=== PATIENT | male | born 1985 | race African-American/Black ===

== ENCOUNTER 2016-06-24 01:18 | Emergency (ER) | payer SELFPAY ==
--- NOTE | 2016-06-24 03:33 | ER Document Report ---
ED General - General Chief Complaint: ETOH Abuse Stated Complaint: POSSIBLE HIGH ALCOHOL LEVEL Notes: Patient is a 30-year-old male presents with complaint of a rash. He also some alcohol today. Patient's is the rash has been there for 3-4 days. Over his torso and extremities. He says it does itch some. No fevers. No vomiting. No diarrhea. Has been under some stress. No history of eczema. No other complaints at this time. - Related Data Allergies/Adverse Reactions: No Known Allergies Allergy (Verified 06/24/16 01:41) Past Medical History - Social History Smoking Status: Unknown if Ever Smoked Frequency of alcohol use: Occasional Drug Abuse: None Family History: Reviewed & Not Pertinent Surgical Hx: Negative - Immunizations Hx Diphtheria, Pertussis, Tetanus Vaccination: Yes Review of Systems - Review of Systems Notes: My Normal Review Basic REVIEW OF SYSTEMS: CONSTITUTIONAL : Denies fever, chills, or sweats. Denies recent illness. EENT: Denies eye, ear, throat, or mouth pain or symptoms. Denies nasal or sinus congestion. RESPIRATORY: Denies cough, cold, or chest congestion. Denies shortness of breath, difficulty breathing, or wheezing. GASTROINTESTINAL: Denies abdominal pain. Denies nausea, vomiting, or diarrhea. Denies constipation. Last BM: MUSCULOSKELETAL: Denies neck or back pain or joint pain or swelling. SKIN: Macular rash over extremities and torso NEUROLOGICAL: Denies altered mental status or loss of consciousness. Denies headache. Denies weakness or paralysis or loss of use of either side. Denies problems with gait or speech. Denies sensory or motor loss. ALL OTHER SYSTEMS REVIEWED AND NEGATIVE. Physical Exam - Vital signs Vitals: Temp Pulse Resp BP Pulse Ox 97.4 F 80 18 127/88 H 98 06/24/16 01:32 06/24/16 01:32 06/24/16 01:32 06/24/16 01:32 06/24/16 01:32 - Notes Notes: General Appearance: Well nourished, alert, cooperative, no acute distress, no obvious discomfort. Well-appearing. Vitals: reviewed, See vital signs table. Head: no swelling or tenderness to the head Eyes: PERRL, EOMI, Conjuctiva clear Mouth: No decreasd moisture Lungs: No wheezing, No rales, No rhonci, No accessory muscle use, good air exchange bilaterally. Heart: Normal rate, Regular rythm, No murmur, no rub Abdomen: Normal BS, soft, No rigidity, No abdominal tenderness, No guarding, no rebound, no abdominal masses, no organomegaly Extremities: strength 5/5 in all extremities, good pulses in all extremities, no swelling or tenderness in the extremities, no edema. Skin: Macular rash over the torso and extremities. Appearance and pattern appears consistent with pityriasis. No rash on the palms or soles. No oral lesions. Neuro: speech clear, oriented x 3, normal affect, responds appropriately to questions. Course - Vital Signs Vital signs: Temp Pulse Resp BP Pulse Ox 97.4 F 80 18 127/88 H 98 06/24/16 01:32 06/24/16 01:32 06/24/16 01:32 06/24/16 01:32 06/24/16 01:32 - Transfer of Care Notes: 06/24/16 07:03 Patient is well-appearing. He is awake alert. He is talking without sinus worse. Skin normal coordination. He is clinically sober I feel safe to be discharged home. His rash is very consistent with that of pityriasis. He has what appears to be her old patch on his back. His diffuse macular rash that is pruritic. He is well-appearing without fevers. He is not septic or toxic appearing. I informed him that he must return to ER immediately if has fevers, worsening was rash, pain with the rash, or feels unwell. Patient agrees with plan and will be discharged home. Dictation of this chart was performed using voice recognition software; therefore, there may be some unintended grammatical errors. Discharge - Discharge Clinical Impression: Rash Alcohol intoxication Qualifiers: Complication of substance-induced condition: uncomplicated Qualified Code(s): F10.120 - Alcohol abuse with intoxication, uncomplicated Condition: Good Disposition: HOME, SELF-CARE Additional Instructions: Please return to the ER immediately if he has fevers, worsening rash, any pain with her rash, vomiting, or feel unwell. Please do not drink large amounts of alcohol. Forms: Return to Work
[2016-06-24 07:45] VITALS: BP 106/70
== END 2016-06-24 07:45 | disposition home or self-care (01) ==
LOC: ER 01:18
DX: R21 Rash and other nonspecific skin eruption (principal); F10.120 Alcohol abuse with intoxication, uncomplicated
CPT/HCPCS: 99284

== ENCOUNTER 2016-10-23 03:30 | Emergency (ER) | payer SELFPAY ==
[2016-10-23] MEDS ORDERED: LIDOCAINE 1%/EPINEPHRINE INJ 20 ML VIAL INJ ONE (03:39)
[2016-10-23 04:04] VITALS: BP 128/91
--- NOTE | 2016-10-23 04:38 | RADIOLOGY REPORT (SQ) ---
EXAM DESCRIPTION: CT HEAD WITHOUT COMPLETED DATE/TIME: 10/23/2016 4:14 am REASON FOR STUDY: head injury, ETOH COMPARISON: Facial CT 12/29/2011 TECHNIQUE: Axial images acquired through the brain without intravenous contrast. Images reviewed wi th bone, brain and subdural windows. Images stored on PACS. All CT scanners at this facility use dose modulation, iterative reconstruction, and/or weight based d osing when appropriate to reduce radiation dose to as low as reasonably achievable (ALARA). [facility]: Dose Right [facility]: CareDose [facility]: Dose Right [facility]: Teradose 4D [facility]: [employer] RADIATION DOSE: 64.61 mGy. LIMITATIONS: None. FINDINGS: VENTRICLES: Normal size and contour. CEREBRUM: No masses. No hemorrhage. No midline shift. Normal ac/white matter differentiation. N o evidence for acute infarction. CEREBELLUM: No masses. No hemorrhage. No alteration of density. No evidence for acute infarction. EXTRAAXIAL SPACES: No fluid collections. No masses. ORBITS AND GLOBE: No intra- or extraconal masses. Normal contour of globe without masses. CALVARIUM: No fracture. PARANASAL SINUSES: No fluid or mucosal thickening. SOFT TISSUES: No mass or hematoma. OTHER: No other significant finding. IMPRESSION: No evidence of calvarial injury or intracranial hemorrhage. TECHNICAL DOCUMENTATION: JOB ID: [id number] Quality ID # [id number]: Final reports with documentation of one or more dose reduction techniques (e.g., Au tomated exposure control, adjustment of the mA and/or kV according to patient size, use of iterative reconstruction technique) 2010 [employer]- All Rights Reserved
--- NOTE | 2016-10-23 04:43 | RADIOLOGY REPORT (SQ) ---
EXAM DESCRIPTION: CT CERVICAL SPINE WITHOUT COMPLETED DATE/TIME: 10/23/2016 4:19 am REASON FOR STUDY: head injury, ETOH COMPARISON: None. TECHNIQUE: Axial images acquired through the cervical spine without intravenous contrast. Images re viewed with lung, soft tissue and bone windows. Reconstructed coronal and sagittal MPR images review ed. Images stored on PACS. All CT scanners at this facility use dose modulation, iterative reconstruction, and/or weight based d osing when appropriate to reduce radiation dose to as low as reasonably achievable (ALARA). [facility]: Dose Right [facility]: CareDose [facility]: Dose Right [facility]: Teradose 4D [facility]: [employer] RADIATION DOSE: 13.26 mGy. LIMITATIONS: None. FINDINGS: ALIGNMENT: Reversal of the normal lordotic curvature may be positional. MINERALIZATION: Normal. VERTEBRAL BODIES: No acute fracture or dislocation. DISCS: No significant disc disease. FACETS, LATERAL MASSES, POSTERIOR ELEMENTS: Today's examination demonstrates a chronic fracture of th e right projection of the C4 spinous process. No acute fractures. No dislocation. HARDWARE: None in the spine. VISUALIZED RIBS: No fractures. LUNG APICES AND SOFT TISSUES: No significant or acute findings. OTHER: No other significant finding. IMPRESSION: Chronic fracture of the right projection of the C4 spinous process. No evidence of acut e osseous injury. TECHNICAL DOCUMENTATION: JOB ID: [id number] Quality ID # [id number]: Final reports with documentation of one or more dose reduction techniques (e.g., Au tomated exposure control, adjustment of the mA and/or kV according to patient size, use of iterative reconstruction technique) 2010 [employer]- All Rights Reserved
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
== END 2016-10-23 05:10 | disposition home or self-care (01) ==
LOC: ER 03:30
PROC: 0HQ0XZZ Repair Scalp Skin, External Approach (ICD-10-PCS; principal; 2016-10-23)
DX: S01.01XA Laceration without foreign body of scalp, initial encounter (principal); S10.91XA Abrasion of unspecified part of neck, initial encounter; Y00.XXXA Assault by blunt object, initial encounter
CPT/HCPCS: 99284; 70450; 72125; 12002; J3490

== ENCOUNTER 2016-10-30 12:41 | Emergency (ER) | payer SELFPAY ==
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
[2016-10-30 15:47] VITALS: BP 132/79
== END 2016-10-30 15:45 | disposition home or self-care (01) ==
LOC: ER 12:41
DX: Z48.02 Encounter for removal of sutures (principal)

== ENCOUNTER 2019-04-29 18:46 | Inpatient (IN) | payer OTHER ==
[~2019-04-29 18:46] MED LIST: DEXAMETHASONE SOD PHOSPHATE INJ 4 MG/1 ML VIAL ONE; GLYCOPYRROLATE 1 MG/5 ML VIAL ONE; KETOROLAC TROMETHAMINE 60 MG/2 ML SDV ONE; LIDOCAINE 2% INJ-PF (20 MG/ML) 2 ML AMPUL ONE; NEOSTIGMINE METHYLSULFATE 10 MG/10 ML VIAL ONE; ONDANSETRON HCL INJ/PF 4 MG/2 ML SDV ONE; ROCURONIUM BROMIDE INJ 50 MG/5 ML VIAL IV ONE
[2019-04-29 19:24] LABS: ABSOLUTE LYMPHOCYTES (AUTO) 1.2 10^3/uL (0.5-4.7); ABSOLUTE MONOCYTES (AUTO) 0.4 10^3/uL (0.1-1.4); ABSOLUTE NEUT (AUTO) 2.7 10^3/uL (1.7-8.2); BASOPHILS % (AUTO) 0.4 % (0-2); EOSINOPHILS % (AUTO) 0.3 % (0-6); HEMATOCRIT 42.4 % (37.9-51.0); HEMOGLOBIN 14.3 g/dL (13.5-17.0); LYMPHOCYTES % (AUTO) 26.8 % (13-45); MEAN CORPUSCULAR HEMOGLOBIN 32.9 pg (27.0-33.4); MEAN CORPUSCULAR HGB CONC 33.8 g/dL (32.0-36.0); MEAN CORPUSCULAR VOLUME 97 fl (80-97); MONOCYTES % (AUTO) 9.8 % (3-13); PLATELET COUNT 222 10^3/uL (150-450); RED BLOOD COUNT 4.35 10^6/uL (4.35-5.55); RED CELL DISTRIBUTION WIDTH 13.5 % (11.5-14.0); SEGMENTED NEUTROPHILS % (AUTO) 62.7 % (42-78); TOTAL CELLS COUNTED % (AUTO) 100 %; WHITE BLOOD COUNT 4.3 10^3/uL (4.0-10.5)
[2019-04-29 19:25] LABS: ALBUMIN 2.3 g/dL (3.5-5.0); ALKALINE PHOSPHATASE 64 U/L (38-126); ANION GAP 7 (5-19); ASPARTATE AMINO TRANSFERASE 32 U/L (17-59); BILIRUBIN,DIRECT 0.2 mg/dL (0.0-0.4); BILIRUBIN,TOTAL 0.3 mg/dL (0.2-1.3); BLOOD UREA NITROGEN 6 mg/dL (7-20); CARBON DIOXIDE 18 mmol/L (22-30); CHLORIDE 114 mmol/L (98-107); TOTAL PROTEIN 4.5 g/dL (6.3-8.2)
[2019-04-29 19:33] LABS: GLUCOSE 69 mg/dL (75-110)
[2019-04-29 19:36] LABS: POTASSIUM 2.3 mmol/L (3.6-5.0)
[2019-04-29] MEDS ORDERED: CALCIUM GLUCONATE 1000 MG/10 ML INJ IV ONE (19:41)
[2019-04-29] MEDS ORDERED: KETOROLAC TROMETHAMINE INJ/PF 30 MG/1 ML SDV IV ONE (19:46)
[2019-04-29] MEDS ORDERED: NORMAL SALINE 1000 ML 1,000 ML IV ONE ×3 (19:46→22:00)
[2019-04-29] MEDS ORDERED: ONDANSETRON HCL INJ/PF 4 MG/2 ML SDV IV ONE (19:46)
[2019-04-29] MEDS ORDERED: MORPHINE SULFATE 10 MG/ML INJ IV ONE (19:46)
[2019-04-29 20:05] LABS: APPEARANCE,URINE CLEAR; BILIRUBIN,URINE NEGATIVE (NEGATIVE); COLOR,URINE YELLOW; GLUCOSE, URINE NEGATIVE (NEGATIVE); KETONES,URINE TRACE mg/dL (NEGATIVE); PROTEIN,URINE NEGATIVE (NEGATIVE); URINE SPECIFIC GRAVITY 1.021; UROBILINOGEN,URINE NEGATIVE mg/dL (<2.0)
--- NOTE | 2019-04-29 20:10 | ER Document Report ---
ED General - General Chief Complaint: Abdominal Pain Stated Complaint: ABDOMINAL,LOWER BACK PAIN Time Seen by Provider: 04/29/19 19:08 Mode of Arrival: Medic Information source: Patient Notes: Patient is an otherwise healthy 33-year-old male presenting to the emergency department chief complaint of right-sided abdominal pain that radiates to his back, groin pain, nausea and vomiting. He states all symptoms started yesterday. He states he has vomited only 6 times. He denies any past medical history, denies use of any daily medications. He has no drug allergies. He is writhing around in pain. Denies history of kidney stones. TRAVEL OUTSIDE OF THE [place] IN LAST 30 DAYS: No - Related Data Allergies/Adverse Reactions: No Known Allergies Allergy (Verified 10/30/16 12:55) Past Medical History - General Information source: Patient - Social History Smoking Status: Current Some Day Smoker Frequency of alcohol use: Occasional Drug Abuse: Marijuana Family History: Reviewed & Not Pertinent Patient has suicidal ideation: No Patient has homicidal ideation: No - Medical History Medical History: Negative Renal/ Medical History: Denies: Hx Peritoneal Dialysis Surgical Hx: Negative - Immunizations Immunizations up to date: Yes Hx Diphtheria, Pertussis, Tetanus Vaccination: Yes Review of Systems - Review of Systems Constitutional: No symptoms reported EENT: No symptoms reported Cardiovascular: No symptoms reported Respiratory: No symptoms reported Gastrointestinal: See HPI Genitourinary: No symptoms reported Male Genitourinary: No symptoms reported Musculoskeletal: No symptoms reported Skin: No symptoms reported Hematologic/Lymphatic: No symptoms reported Neurological/Psychological: No symptoms reported Physical Exam - Vital signs Vitals: Temp Pulse Resp BP Pulse Ox 98.1 F 65 16 127/86 H 99 04/29/19 18:54 04/29/19 18:54 04/29/19 18:54 04/29/19 18:54 04/29/19 18:54 - Notes Notes: PHYSICAL EXAMINATION: GENERAL: Well-nourished and in moderate distress. HEAD: Atraumatic, normocephalic. EYES: Pupils equal round and reactive to light, extraocular movements intact, sclera anicteric, conjunctiva are normal. ENT: Nares patent, oropharynx clear without exudates. Moist mucous membranes. NECK: Normal range of motion, supple without lymphadenopathy LUNGS: Breath sounds clear to auscultation bilaterally and equal. No wheezes rales or rhonchi. HEART: Regular rate and rhythm without murmurs ABDOMEN: Generalized abdominal tenderness, guarding present. No masses noted. Musculoskeletal: Normal range of motion, no pitting or edema. No cyanosis. NEUROLOGICAL: Cranial nerves grossly intact. Normal speech. Normal sensory, motor exams PSYCH: Normal mood, normal affect. SKIN: Warm, Dry, normal turgor, no rashes or lesions noted. Course - Re-evaluation Re-evalutation: 04/29/19 20:09 Corrected calcium is 7.36. Will start with 1000 mg of calcium gluconate and 40 M EQ's of IV potassium to correct his electrolytes. He has been given pain medications and nausea medications. CT of the abdomen pelvis without IV oral contrast pending, suspect renal calculi. 04/29/19 21:25 Radiologist is called, CT of abdomen pelvis shows free air and fluids, she is unable to determine exactly where there may be a perforation. Appendix appears normal. Reminded of n.p.o. status. 04/29/19 21:32 Called and spoke with on-call surgeon, Dr. Bhatt, he will evaluate the patient. 04/29/19 21:40 Dr. Bhatt at bedside. - Vital Signs Vital signs: Temp Pulse Resp BP Pulse Ox 98.2 F 79 19 136/91 H 100 04/29/19 21:56 04/29/19 21:56 04/29/19 22:01 04/29/19 22:01 04/29/19 21:56 - Laboratory Result Diagrams: 04/29/19 18:51 04/29/19 18:51 Laboratory results interpreted by me: 04/29/19 04/29/19 04/29/19 18:51 19:46 20:08 Potassium 2.3 L* Chloride 114 H Carbon Dioxide 18 L BUN 6 L Glucose 69 L Calcium 6.0 L* Total Protein 4.5 L Albumin 2.3 L Urine Ketones TRACE H Chlamydia DNA (PCR) DETECTED H Discharge - Discharge Clinical Impression: Perforated abdominal viscus, Hypokalemia, Hypocalcemia Condition: Stable Disposition: ADMITTED INPATIENT Admitting Provider: Surgicalist - Dr. Bhatt Unit Admitted: Surgical Floor
[2019-04-29] MEDS: POTASSI CL 20 MEQ/50 ML RIDER 20 MEQ/50 ML RTUPB IV SCH ×2 (20:39→22:33)
[2019-04-29] MEDS ORDERED: FENTANYL CITRATE INJ/PF 100 MCG/2 ML AMPUL IV ONE ×2 (20:58→22:43)
--- NOTE | 2019-04-29 21:26 | RADIOLOGY REPORT (SQ) ---
EXAM DESCRIPTION: CT ABDOMEN PELVIS WITHOUT IV CONTRAST COMPLETED DATE/TME: 04/29/2019 19:46 CLINICAL HISTORY: 33 years Male eval for renal stone COMPARISON: None. TECHNIQUE: Contiguous axial images obtained through the abdomen and pelvis without IV contrast. Reformatted images obtained. This exam was performed according to our department optimization program which includes automated exposure control, adjustment of the mA and/or kv according to patient size and/or use of iterative reconstruction technique. FINDINGS: There is free intraperitoneal air consistent with perforation. There is free fluid in the abdomen and pelvis. Minimal atelectasis in the right lung base. The liver appears unremarkable. The spleen and pancreas appear unremarkable. No adrenal masses. The kidneys appear unremarkable. No hydronephrosis or definite ureteral calculi. The gallbladder is visualized. No aneurysmal dilatation of the aorta. No bowel obstruction. Small amount of wall thickening is present in loops of large and small bowel which is nonspecific. This may be related to inflammatory process in the peritoneum as a result of perforation or represent enterocolitis. The site of perforation is not clearly identified. appendix appears unremarkable. IMPRESSION: Free intraperitoneal air consistent with perforation. The site of perforation is not identified. Apple Beltrán was called and notified of the findings at 8:24 PM central time. There is free fluid in the abdomen and pelvis Wall thickening in loops of large and small bowel which may be as result of inflammation in the peritoneum as a result of the perforation versus enterocolitis from other infectious or inflammatory process
[2019-04-29 21:50] LABS: CHLAM PCR DETECTED (NOT DETECT)
[2019-04-29] MEDS ORDERED: METRONIDAZOLE RTU 500 MG/NS 100 ML IV ONE (21:51)
[2019-04-29] MEDS ORDERED: DEXTROSE 50%-WATER 25 GM/50 ML DISP.SYRIN IV ONE (21:55)
[2019-04-29] MEDS ORDERED: LEVOFLOXACIN 750 MG/D5W RTU 750 MG/150 ML RTUPB IV ONE (22:15)
--- NOTE | 2019-04-29 22:57 | RADIOLOGY REPORT (SQ) ---
EXAM DESCRIPTION: CT ABDOMEN PELVIS WITH IV CONTRAST COMPLETED DATE/TME: 04/29/2019 22:00 CLINICAL HISTORY: 33 years Male eval for location of perforation, free air COMPARISON: Earlier noncontrast exam 04/29/2019. TECHNIQUE: Contiguous axial images obtained through the abdomen and pelvis following IV contrast. Reformatted images obtained. This exam was performed according to our department optimization program which includes automated exposure control, adjustment of the mA and/or kv according to patient size and/or use of iterative reconstruction technique. FINDINGS: Atelectasis in the lung bases. As before there is free intraperitoneal air as well as a moderate amount of free fluid which is present in the abdomen pelvis and along the paracolic gutters. The amount of fluid and the amount of gas has increased when compared to the previous study. There is mild dilatation of the proximal pancreatic duct and the bile duct. No obvious duodenal wall thickening is noted however there is a single area where there could be an focal area of perforation and ulceration along the duodenal bulb seen on axial image / and coronal images 17 through 19. Gallbladder, adrenal glands, kidneys and spleen remain unchanged. No focal liver lesion is noted. Wall thickening is present in loops of large and small bowel. There is no definite gas or evidence of diverticulitis along the cecum or along the sigmoid colon. The appendix is seen in appears unremarkable. Small amount of free gas is also present in the lower pelvis. Aorta is normal in caliber. IMPRESSION: Increasing free intraperitoneal gas and fluid consistent with perforation The exact site of perforation is not clearly identified but a small defect in the wall of the duodenal bulb superiorly and laterally may be present which could reflect area of duodenal ulceration. Perforation in the central small bowel or transverse colon cannot be entirely excluded. A definite area of wall thickening or diverticulitis involving the sigmoid colon or cecum are not identified at the appendix appears normal Findings were discussed with Dr Bhatt at 9:50 PM central time.
--- NOTE | 2019-04-29 23:00 | PDOC H&P ---
History of Present Illness Patient complains of: Abdominal pain History of Present Illness: CLOVIS LOJA JR is a 33 year old male presenting with gradual onset of mid abdominal pain about 3 days ago that waxed and waned in quality along with the emergence of nausea and vomiting. The pain became much more severe in the last day with worsened pain with ambulation and any type of jostling motion. Patient denies any blood per rectum. He does have some dark loose bowel movements today. He denies any fever. He denies any prior history of this sort of pain. Patient is an alcoholic but denies any NSAID abuse. Although he takes some recreational drugs he denies any history of IV drug abuse nor prescription pain medication abuse. He denies any recent trauma. He states that he could have eaten some fish bone in the last several days but is unsure. He states that the pain may be worse on the right side although it is diffuse at this time. Past Medical History Medical History: None Past Surgical History Past Surgical History: Reports: None Social History Smoking Status: Current Some Day Smoker Frequency of Alcohol Use: Heavy Drugs: Cocaine, Marijuana Hx Prescription Drug Abuse: No Family History Family History: Reviewed & Not Pertinent Parental Family History Reviewed: Yes Children Family History Reviewed: Yes Sibling(s) Family History Reviewed.: Yes Medication/Allergy Home Medications: Butalb/Acetaminophen/Caffeine [Fioricet (50-325-40 mg) Tablet] 1 - 2 tab PO Q6 #20 each 04/10/13 Allergies/Adverse Reactions: No Known Allergies Allergy (Verified 10/30/16 12:55) Review of Systems All systems: reviewed and no additional remarkable complaints except as stated Respiratory: PRESENT: cough Gastrointestinal: PRESENT: as per HPI Physical Exam Vital Signs: Temp Pulse Resp BP Pulse Ox 98.2 F 79 16 125/74 100 04/29/19 21:56 04/29/19 21:56 04/29/19 18:54 04/29/19 21:56 04/29/19 21:56 Intake & Output 04/28/19 04/29/19 04/30/19 06:59 06:59 06:59 Intake Total 1000 Balance 1000 Weight 65.771 kg General appearance: PRESENT: cooperative, mild distress Eye exam: PRESENT: conjunctiva pink Neck exam: PRESENT: other - Supple with no masses and no tenderness. Respiratory exam: PRESENT: clear to auscultation molly Cardiovascular exam: PRESENT: RRR GI/Abdominal exam: PRESENT: other - Rigid with diffuse abdominal tenderness with diffuse guarding and rebound. No hernias identified. Extremities exam: PRESENT: other - Warm Neurological exam: PRESENT: alert, awake Psychiatric exam: PRESENT: appropriate affect Skin exam: PRESENT: warm Results Laboratory Results: 04/29/19 18:51 04/29/19 18:51 04/29/19 04/29/19 04/29/19 18:51 18:51 18:51 WBC 4.3 RBC 4.35 Hgb 14.3 Hct 42.4 MCV 97 MCH 32.9 MCHC 33.8 RDW 13.5 Plt Count 222 Seg Neutrophils % 62.7 Sodium 138.5 Potassium 2.3 L* Chloride 114 H Carbon Dioxide 18 L Anion Gap 7 BUN 6 L Creatinine 0.57 Est GFR ( Amer) > 60 Glucose 69 L Calcium 6.0 L* Magnesium 1.8 Total Bilirubin 0.3 AST 32 Alkaline Phosphatase 64 Total Protein 4.5 L Albumin 2.3 L Lipase 112.0 Urine Color Urine Appearance Urine pH Ur Specific [place] Urine Protein Urine Glucose (UA) Urine Ketones Urine Blood Urine RBC (Auto) 04/29/19 19:46 WBC RBC Hgb Hct MCV MCH MCHC RDW Plt Count Seg Neutrophils % Sodium Potassium Chloride Carbon Dioxide Anion Gap BUN Creatinine Est GFR ( Amer) Glucose Calcium Magnesium Total Bilirubin AST Alkaline Phosphatase Total Protein Albumin Lipase Urine Color YELLOW Urine Appearance CLEAR Urine pH 5.0 Ur Specific [place] 1.021 Urine Protein NEGATIVE Urine Glucose (UA) NEGATIVE Urine Ketones TRACE H Urine Blood NEGATIVE Urine RBC (Auto) 1 Impressions: Abdomen/Pelvis CT 04/29/19 19:46 IMPRESSION: Free intraperitoneal air consistent with perforation. The site of perforation is not identified. Apple Beltrán was called and notified of the findings at 8:24 PM central time. There is free fluid in the abdomen and pelvis Wall thickening in loops of large and small bowel which may be as result of inflammation in the peritoneum as a result of the perforation versus enterocolitis from other infectious or inflammatory process Assessment & Plan - Diagnosis (1) Perforated abdominal viscus Is this a current diagnosis for this admission?: Yes Plan: We will plan exploratory laparotomy with possible bowel resection. May be a duodenal ulcer perforation although the clear source of the perforation is not identified on CT. The appendix does appear normal and the sigmoid colon does not appear to be the culprit on CT. I have had a discussion with the patient concerning the risk and benefits of the surgery including risk that the perforation is not identified, risk of bleeding, infection, adjacent structure injury, poor wound healing, cardiopulmonary risks, recurrence. Patient underst ands that there is a possibility of having to do a colostomy if a colon perforation is noted. Will resuscitate the patient with IV fluids, potassium supplementation, IV antibiotics and NG decompression while awaiting the OR team to come in. Patient understands and agrees to proceed.
[2019-04-29] MEDS ORDERED: FENTANYL CITRATE INJ/PF 100 MCG/2 ML AMPUL ONE (23:19)
[2019-04-29] MEDS ORDERED: MIDAZOLAM 2 MG/2 ML INJ ONE (23:19)
[2019-04-29] MEDS ORDERED: PROPOFOL INJ 200 MG/20 ML VIAL IV ONE (23:20)
[2019-04-29] MEDS ORDERED: HYDROMORPHONE HCL INJ/PF 2 MG/ML AMPULE ONE (23:20)
[2019-04-29] MEDS ORDERED: BUPIVACAINE HCL 0.25 % INJ/PF (2.5 MG/1 ML) 30 ML VIAL ONE (23:46)
[2019-04-30] MEDS ORDERED: PANTOPRAZOLE SODIUM 40 MG TABLET.DR PO ONE (00:23)
[2019-04-30] MEDS ORDERED: FAMOTIDINE INJ/PF 20 MG/2 ML SDV IV ONE (00:24)
[2019-04-30] MEDS ORDERED: PANTOPRAZOLE SODIUM 40 MG VIAL IV ONE (00:30)
[2019-04-30] MEDS ORDERED: MEPERIDINE HCL/PF INJ 25 MG/1 ML DISP.SYRIN IV PRN (00:41)
[2019-04-30] MEDS ORDERED: OXYCODONE-ACETAMINOPHEN 5-325 MG TABLET PO PRN ×2 (00:41)
[2019-04-30] MEDS ORDERED: ONDANSETRON HCL INJ/PF 4 MG/2 ML SDV IV PRN ×2 (00:41→01:06)
[2019-04-30] MEDS ORDERED: FENTANYL CITRATE INJ/PF 100 MCG/2 ML AMPUL IV PRN ×3 (00:41)
[2019-04-30] MEDS ORDERED: PROMETHAZINE HCL INJ 25 MG/1 ML VIAL IV PRN ×2 (00:41)
[2019-04-30] MEDS ORDERED: DIPHENHYDRAMINE HCL 50 MG/ML VIAL IV PRN (00:41)
[2019-04-30] MEDS ORDERED: DEXTROSE 40% GEL 15 GM TUBE PO PRN ×2 (01:06)
[2019-04-30] MEDS ORDERED: DEXTROSE 50%-WATER 25 GM/50 ML DISP.SYRIN IV PRN ×2 (01:06)
[2019-04-30] MEDS ORDERED: GLUCAGON,HUMAN RECOMB 1 MG INJ SUBCUT PRN (01:06)
--- NOTE | 2019-04-30 01:06 | Operative Report ---
Operative Report DATE OF SURGERY: 04/30/19 PREOPERATIVE DIAGNOSIS: Perforated bowel with peritonitis POSTOPERATIVE DIAGNOSIS: Perforated duodenal ulcer OPERATION: Exploratory laparotomy with abdominal cavity washout and Get patch closure of perforated duodenal ulcer SURGEON: MEMO CR ANESTHESIA: GA TISSUE REMOVED OR ALTERED: None COMPLICATIONS: None ESTIMATED BLOOD LOSS: 20 cc INTRAOPERATIVE FINDINGS: Turbid fluid throughout the peritoneal cavity. Perforation at the region of the pylorus, likely anterior duodenal ulcer perforation. Fatty liver. PROCEDURE: Informed consent was obtained. Patient was brought to the operating room and placed on the operating table in the supine position. After satisfactory induction of general anesthesia patient's abdomen was prepped and draped in usual sterile fashion. A midline supraumbilical incision was made and dissection carried out through the fascia and the peritoneal cavity was entered without difficulty. The falciform ligament was taken by clamping dividing and tying. I encountered copious amount of turbid bile-stained fluid. I could see a perforation at the region of the pylorus, likely anterior duodenal ulcer perforation. With this visualization of the source of peritonitis, I extended the incision cephalad. Wound protractor was used during the case. There was copious amount of fluid in the peritoneal cavity that was aspirated out. Liver appeared fatty but not cirrhotic. The anterior surface of the stomach felt normal and I did not appreciate any palpable gastric masses. NG tube position was verified. The transverse colon felt normal. The sigmoid colon felt normal as did the cecum. Portion of the jejunum and ileum were visualized and it appeared grossly normal. The gallbladder appeared distended but it was aurora's egg blue. The omentum felt normal with no nodules. I could feel the pylorus at the region of the perforation and it was difficult to tell whether it was a prepyloric ulcer perforation versus a duodenal perforation. It appeared to be on the duodenal side of the pylorus. The perforation itself was about half a centimeter in size. The surrounding tissue was somewhat rigid and inflamed and the pyloric vein of Erwin was not clearly visible. Get patch closure was performed, buttressing the omentum over the perforation using interrupted Vicryl sutures. The repaired appeared secure. The peritoneal cavity was irrigated copiously and irrigant aspirated out. Irrigation fluid was perfectly clear at the end of the case. Hemostasis appeared excellent. 2 Bijan-Davison drains were placed around the region of the Get patch closure. And brought out through separate stab incisions in the upper abdomen and sutured in place. Sponge needle instrument counts were all correct. Fascia was closed with running PDS suture. Skin was closed with claudia. Marcaine was injected at the incision sites. Patient tolerated procedure well with no apparent complications and was taken to the recovery area in stable condition.
[2019-04-30] MEDS ORDERED: CEFAZOLIN 1 GM/D5W RTU 1 GM/50 ML RTUPB IV SCH (06:00)
[2019-04-30] MEDS: CEFAZOLIN SODIUM 1 GM in DEXTROSE 5%-WATER 50 ML IV SCH ×3 (09:31→20:26)
[2019-04-30] MEDS: NORMAL SALINE 1000 ML 1,000 ML IV PRN ×2 (09:31→14:33)
[2019-04-30] MEDS: PANTOPRAZOLE SODIUM 40 MG VIAL IV SCH ×2 (09:32→22:18)
[2019-04-30] MEDS: MORPHINE SULFATE 10 MG/ML INJ IV PRN ×3 (09:32→20:16)
[2019-04-30] MEDS: ENOXAPARIN SODIUM INJ 40 MG/0.4 ML DISP.SYRIN SUBCUT SCH (09:32)
[2019-04-30] MEDS ORDERED: THIAMINE HCL 100 MG, FOLIC ACID 1 MG in NORMAL SALINE 250 ML IV SCH (10:00)
--- NOTE | 2019-04-30 10:10 | PDOC PROGRESS REPORT ---
Subjective Progress Note for:: 04/30/19 Subjective:: Patient on the floor, no immediate postoperative issues; Reason For Visit: PERFORATED DUODENAL ULCER Physical Exam Vital Signs: Temp Pulse Resp BP Pulse Ox 98.2 F 88 18 123/86 H 100 04/30/19 07:31 04/30/19 07:31 04/30/19 07:31 04/30/19 07:31 04/30/19 07:31 Intake & Output 04/29/19 04/30/19 05/01/19 06:59 06:59 06:59 Intake Total 3500 4408 Output Total 3670 1150 Balance -170 3258 Weight 71.5 kg General appearance: PRESENT: no acute distress, other - Patient is awake alert and oriented x4. No overt signs of alcohol withdrawal. GI/Abdominal exam: PRESENT: other - Appropriately tender; drains coming out right upper and left upper quadrants, with minimal serosanguineous drainage. Results Laboratory Results: 04/29/19 18:51 04/29/19 22:55 04/29/19 04/29/19 04/29/19 18:51 18:51 18:51 WBC 4.3 RBC 4.35 Hgb 14.3 Hct 42.4 MCV 97 MCH 32.9 MCHC 33.8 RDW 13.5 Plt Count 222 Seg Neutrophils % 62.7 Sodium 138.5 Potassium 2.3 L* Chloride 114 H Carbon Dioxide 18 L Anion Gap 7 BUN 6 L Creatinine 0.57 Est GFR ( Amer) > 60 Glucose 69 L Calcium 6.0 L* Magnesium 1.8 Total Bilirubin 0.3 AST 32 Alkaline Phosphatase 64 Total Protein 4.5 L Albumin 2.3 L Lipase 112.0 Urine Color Urine Appearance Urine pH Ur Specific [place] Urine Protein Urine Glucose (UA) Urine Ketones Urine Blood Urine RBC (Auto) 04/29/19 04/29/19 19:46 22:55 WBC RBC Hgb Hct MCV MCH MCHC RDW Plt Count Seg Neutrophils % Sodium Potassium 3.8 D Chloride Carbon Dioxide Anion Gap BUN Creatinine Est GFR ( Amer) Glucose Calcium Magnesium Total Bilirubin AST Alkaline Phosphatase Total Protein Albumin Lipase Urine Color YELLOW Urine Appearance CLEAR Urine pH 5.0 Ur Specific [place] 1.021 Urine Protein NEGATIVE Urine Glucose (UA) NEGATIVE Urine Ketones TRACE H Urine Blood NEGATIVE Urine RBC (Auto) 1 Impressions: Abdomen/Pelvis CT 04/29/19 22:00 IMPRESSION: Increasing free intraperitoneal gas and fluid consistent with perforation The exact site of perforation is not clearly identified but a small defect in the wall of the duodenal bulb superiorly and laterally may be present which could reflect area of duodenal ulceration. Perforation in the central small bowel or transverse colon cannot be entirely excluded. A definite area of wall thickening or diverticulitis involving the sigmoid colon or cecum are not identified at the appendix appears normal Findings were discussed with Dr Bhatt at 9:50 PM central time. Assessment & Plan - Diagnosis (1) Perforated abdominal viscus Is this a current diagnosis for this admission?: Yes Plan: Impression: Patient 10 hours status post exploratory laparotomy, oversewing of a duodenal perforation, with Get patch, doing reasonably well in the early postoperative. Recommendations: 1. I have consulted the hospitalist service for assistance with management of alcohol withdrawal 2. Will discontinue Lozada catheter after patient gets up and out of bed. 3. Potassium now up to a 3.8. 4. Leave nasogastric tube and drains in position. The above explained to the patient. He expressed his understanding and agrees to proceed with treatment plan. (2) ETOH abuse Is this a current diagnosis for this admission?: Yes (3) Hypocalcemia Is this a current diagnosis for this admission?: Yes (4) Hypokalemia Is this a current diagnosis for this admission?: Yes - Time Time Spent with patient: 15-24 minutes
[2019-04-30] MEDS: FLUCONAZOLE 200 MG/NS RTU 200 MG/100 ML RTUPB IV SCH (11:09)
[2019-04-30] MEDS ORDERED: PHENOL/SODIUM PHENOLATE 100 SPRAY/177 ML BOTTLE PO PRN (11:34)
--- NOTE | 2019-04-30 11:38 | PDOC CONSULTATION ---
Consultation Consult Date: 04/30/19 Attending physician:: SARAH HUANG Provider Consulted: CELSO CHAVES Consult reason:: History of alcohol use. Concern for withdrawal. History of Present Illness Admission Date/PCP: 04/29/19 22:07 Patient complains of: Abdominal pain History of Present Illness: CLOVIS LOJA JR is a 33 year old male with no significant past medical history. 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 He does admit to drinking 3 or 440 ounce beers a day. He used to drink hard liquor but has stopped. He reports having had intermittent abdominal discomfort over the last several weeks. He tried Pepto-Bismol and Tums with no significant relief. He does not correlate eating meals with any improvement or worsening of the pain. I will last 3 days the pain is gotten significantly worse. He in fact experience nausea and vomiting as well. Evaluation revealed perforated gastric ulcer. He was taken to the operating room emergently for repair. See surgical note. We have been asked to see the patient and manage any alcohol withdrawal. Past Medical History Cardiac Medical History: Reports: None Pulmonary Medical History: Reports: None EENT Medical History: Reports: None Neurological Medical History: Reports: None Endocrine Medical History: Reports: None Renal/ Medical History: Reports: None Malignancy Medical History: Reports: None GI Medical History: Reports: None Musculoskeltal Medical History: Reports: None Skin Medical History: Reports: None Psychiatric Medical History: Reports: Alcohol Dependency Traumatic Medical History: Reports: None Hematology: Reports: None Infectious Medical History: Reports: None Past Surgical History Past Surgical History: Reports: None Social History Information Source: Patient Occupation: [employer] Lives with: Spouse/Significant other Smoking Status: Current Some Day Smoker Electronic Cigarette use?: No Frequency of Alcohol Use: Heavy Hx Recreational Drug Use: Yes Drugs: Cocaine, Marijuana Hx Prescription Drug Abuse: No - Advance Directive Resuscitation Status: Full Code Family History Family History: Reviewed & Not Pertinent, Malignancy Parental Family History Reviewed: Yes - Mother-breast cancer Father- complications alcohol Children Family History Reviewed: Yes Sibling(s) Family History Reviewed.: Yes Medication/Allergy Home Medications: No Home Medications 04/30/19 Allergies/Adverse Reactions: No Known Allergies Allergy (Verified 10/30/16 12:55) Review of Systems Constitutional: ABSENT: chills, fever(s), headache(s), night sweats Eyes: ABSENT: visual disturbances Ears: ABSENT: hearing changes Nose, Mouth, and Throat: PRESENT: sore throat. ABSENT: headache(s), mouth pain Cardiovascular: ABSENT: chest pain, edema, palpitations Respiratory: ABSENT: cough, hemoptysis, sputum Gastrointestinal: PRESENT: abdominal pain, diarrhea Genitourinary: PRESENT: other - Currently with Lozada catheter. ABSENT: difficulty urinating, dysuria Musculoskeletal: ABSENT: back pain, deformity, joint swelling, muscle weakness Integumentary: ABSENT: diaphoresis, erythema, lesions Neurological: ABSENT: confusion, focal weakness, memory loss, syncope Psychiatric: ABSENT: anxiety, depression, hallucinations Endocrine: ABSENT: cold intolerance, heat intolerance, polydipsia, polyuria Hematologic/Lymphatic: ABSENT: easy bleeding, easy bruising, lymphadenopathy Physical Exam Vital Signs: Temp Pulse Resp BP Pulse Ox 98.2 F 88 18 123/86 H 100 04/30/19 07:31 04/30/19 07:31 04/30/19 07:31 04/30/19 07:31 04/30/19 07:31 Intake & Output 04/29/19 04/30/19 05/01/19 06:59 06:59 06:59 Intake Total 3500 4408 1100 Output Total 3670 1150 Balance -170 3258 1100 Weight 71.5 kg General appearance: PRESENT: no acute distress, cooperative, well-developed. ABSENT: disheveled Head exam: PRESENT: atraumatic, normocephalic Eye exam: PRESENT: conjunctiva pink, EOMI. ABSENT: scleral icterus Ear exam: PRESENT: normal external ear exam. ABSENT: bleeding, drainage Mouth exam: PRESENT: moist, tongue midline Neck exam: ABSENT: carotid bruit, JVD, lymphadenopathy Respiratory exam: PRESENT: clear to auscultation molly, symmetrical, unlabored. ABSENT: accessory muscle use, rales, rhonchi, tachypnea, wheezes Cardiovascular exam: PRESENT: RRR, +S1, +S2. ABSENT: diastolic murmur, systolic murmur GI/Abdominal exam: PRESENT: diminished bowel sounds, soft, tenderness, other - Bilateral AJIT drains. Serosanguineous fluid collected. Midline incision with dressing in place.. ABSENT: distended Rectal exam: PRESENT: deferred Gentrourinary exam: PRESENT: indwelling catheter Extremities exam: PRESENT: full ROM. ABSENT: joint swelling, pedal edema Musculoskeletal exam: PRESENT: normal inspection. ABSENT: deformity Neurological exam: PRESENT: alert, awake, oriented to person, oriented to place, oriented to time, oriented to situation, CN II-XII grossly intact Psychiatric exam: PRESENT: appropriate affect, normal mood. ABSENT: agitated, anxious Focused psych exam: ABSENT: delusional, restlessness Skin exam: PRESENT: dry, normal color, warm. ABSENT: rash Results Laboratory Results: 04/29/19 18:51 04/29/19 22:55 04/29/19 04/29/19 04/29/19 18:51 18:51 18:51 WBC 4.3 RBC 4.35 Hgb 14.3 Hct 42.4 MCV 97 MCH 32.9 MCHC 33.8 RDW 13.5 Plt Count 222 Seg Neutrophils % 62.7 Sodium 138.5 Potassium 2.3 L* Chloride 114 H Carbon Dioxide 18 L Anion Gap 7 BUN 6 L Creatinine 0.57 Est GFR ( Amer) > 60 Glucose 69 L Calcium 6.0 L* Magnesium 1.8 Total Bilirubin 0.3 AST 32 Alkaline Phosphatase 64 Total Protein 4.5 L Albumin 2.3 L Lipase 112.0 Urine Color Urine Appearance Urine pH Ur Specific [place] Urine Protein Urine Glucose (UA) Urine Ketones Urine Blood Urine RBC (Auto) 04/29/19 04/29/19 19:46 22:55 WBC RBC Hgb Hct MCV MCH MCHC RDW Plt Count Seg Neutrophils % Sodium Potassium 3.8 D Chloride Carbon Dioxide Anion Gap BUN Creatinine Est GFR ( Amer) Glucose Calcium Magnesium Total Bilirubin AST Alkaline Phosphatase Total Protein Albumin Lipase Urine Color YELLOW Urine Appearance CLEAR Urine pH 5.0 Ur Specific [place] 1.021 Urine Protein NEGATIVE Urine Glucose (UA) NEGATIVE Urine Ketones TRACE H Urine Blood NEGATIVE Urine RBC (Auto) 1 Impressions: Abdomen/Pelvis CT 04/29/19 22:00 IMPRESSION: Increasing free intraperitoneal gas and fluid consistent with perforation The exact site of perforation is not clearly identified but a small defect in the wall of the duodenal bulb superiorly and laterally may be present which could reflect area of duodenal ulceration. Perforation in the central small bowel or transverse colon cannot be entirely excluded. A definite area of wall thickening or diverticulitis involving the sigmoid colon or cecum are not identified at the appendix appears normal Findings were discussed with Dr Bhatt at 9:50 PM central time. Assessment and Plan - Diagnosis (1) Perforated duodenal ulcer Is this a current diagnosis for this admission?: Yes Plan: 04/30/2019-the patient presented to the emergency department with abdominal pain and was found to have a perforated viscus. The patient was taken to the operating room. He was found to have a perforated duodenal ulcer. This was addressed surgically. The patient has a midline incision and bilateral Bijan- Davison drains. Further management per surgery. (2) Peritonitis (acute) generalized Is this a current diagnosis for this admission?: Yes Plan: 04/30/2019-antibiotics have been initiated by surgery. Will defer to their management. (3) Hypocalcemia Is this a current diagnosis for this admission?: Yes Plan: 04/30/2019-hypocalcemia was identified in the emergency room. This was corrected. We will continue to monitor serum electrolytes. (4) Hypokalemia Is this a current diagnosis for this admission?: Yes Plan: 04/30/2019-and his potassium is normal today. Continue to monitor electrolytes. (5) ETOH abuse Is this a current diagnosis for this admission?: Yes Plan: 04/30/2019-the hospital service was consulted primarily to manage potential alcohol abuse/withdrawal. The patient states that he typically drinks at least 3 of the 40 ounce beers daily. He did drink prior to the day of admission. He is currently completely asymptomatic. He is not anxious or jittery. Because of his current condition I will not prescribe scheduled benzodiazepines at this time. He will have benzodiazepines available on an as-needed basis for now. We will continue to monitor and adjust treatment per the patient's clinical presentation. He was also encouraged to stop drinking because alcohol was the most likely etiology of his perforated duodenal ulcer. (6) Chlamydia Is this a current diagnosis for this admission?: Yes Plan: 04/30/2019-4 some reason the emergency department ordered chlamydia testing. The patient was positive for chlamydia DNA. This result was discovered late and so I did prescribe intravenous azithromycin as the patient is currently n.p.o. I will inform the hospitalist who is treating the patient tomorrow so that he may have that discussion. - Time Time Spent with patient: 35 or more minutes Medications reviewed and adjusted accordingly: Yes Anticipated discharge: Home
[2019-04-30] MEDS ORDERED: LORAZEPAM INJ 2 MG/1 ML VIAL IV PRN (11:43)
[2019-04-30] MEDS ORDERED: INFLUENZA QUAD (6MOS+) 2019-20 VAC 0.5 ML SYR IM ONE (13:43)
[2019-04-30] MEDS: NORMAL SALINE 1000 ML 1,000 ML with POTASSIUM CHLORIDE 20 MEQ, MAGNESIUM SULFATE 8 MEQ,... IV SCH ×5 (17:14)
[2019-05-01] MEDS: MORPHINE SULFATE 10 MG/ML INJ IV PRN ×5 (00:14→21:53)
[2019-05-01] MEDS: CEFAZOLIN SODIUM 1 GM in DEXTROSE 5%-WATER 50 ML IV SCH ×4 (04:11→21:53)
[2019-05-01 04:31] LABS: HEMATOCRIT 39.2 % (37.9-51.0); HEMOGLOBIN 13.4 g/dL (13.5-17.0); MEAN CORPUSCULAR HEMOGLOBIN 33.4 pg (27.0-33.4); MEAN CORPUSCULAR HGB CONC 34.3 g/dL (32.0-36.0); MEAN CORPUSCULAR VOLUME 98 fl (80-97); PLATELET COUNT 179 10^3/uL (150-450); RED BLOOD COUNT 4.02 10^6/uL (4.35-5.55); RED CELL DISTRIBUTION WIDTH 13.7 % (11.5-14.0); WHITE BLOOD COUNT 10.5 10^3/uL (4.0-10.5)
[2019-05-01 04:52] LABS: ANION GAP 6 (5-19); BLOOD UREA NITROGEN 11 mg/dL (7-20); CALCIUM 8.6 mg/dL (8.4-10.2); CARBON DIOXIDE 26 mmol/L (22-30); CHLORIDE 106 mmol/L (98-107); GLUCOSE 79 mg/dL (75-110); POTASSIUM 4.7 mmol/L (3.6-5.0)
--- NOTE | 2019-05-01 09:03 | PDOC PROGRESS REPORT ---
Subjective Progress Note for:: 05/01/19 Subjective:: Feels well. Reason For Visit: PERFORATED DUODENAL ULCER Physical Exam Vital Signs: Temp Pulse Resp BP Pulse Ox 98.2 F 99 16 126/76 H 99 05/01/19 08:00 05/01/19 08:00 05/01/19 08:00 05/01/19 08:00 05/01/19 08:00 Intake & Output 04/30/19 05/01/19 05/02/19 06:59 06:59 06:59 Intake Total 4408 3055 50 Output Total 1195 3690 350 Balance 0829 -305 -300 Weight 71.5 kg 69.4 kg General appearance: PRESENT: no acute distress, cooperative Respiratory exam: PRESENT: clear to auscultation molly Cardiovascular exam: PRESENT: RRR GI/Abdominal exam: PRESENT: other - Soft, nondistended, very mild diffuse abdominal tenderness without peritoneal signs. Drain output is turbid but nonbilious. Extremities exam: PRESENT: other - No swelling and no tenderness. Results Laboratory Results: 05/01/19 03:51 05/01/19 03:51 05/01/19 05/01/19 03:51 03:51 WBC 10.5 D RBC 4.02 L Hgb 13.4 L Hct 39.2 MCV 98 H MCH 33.4 MCHC 34.3 RDW 13.7 Plt Count 179 Sodium 137.9 Potassium 4.7 Chloride 106 Carbon Dioxide 26 Anion Gap 6 BUN 11 Creatinine 1.04 Est GFR ( Amer) > 60 Glucose 79 Calcium 8.6 Impressions: Abdomen/Pelvis CT 04/29/19 22:00 IMPRESSION: Increasing free intraperitoneal gas and fluid consistent with perforation The exact site of perforation is not clearly identified but a small defect in the wall of the duodenal bulb superiorly and laterally may be present which could reflect area of duodenal ulceration. Perforation in the central small bowel or transverse colon cannot be entirely excluded. A definite area of wall thickening or diverticulitis involving the sigmoid colon or cecum are not identified at the appendix appears normal Findings were discussed with Dr Bhatt at 9:50 PM central time. Assessment & Plan - Diagnosis (1) Perforated abdominal viscus Is this a current diagnosis for this admission?: Yes Plan: Looks good. We will plan upper GI series on Tuesday. Keep patient n.p.o. with NG decompression until then. Encourage ambulation. Patient's creatinine has increased from preoperative labs however I suspect that the preoperative labs were drawn along an IV site since the electrolytes were so abnormal. We will repeat his chemistries later today to ensure that his creatinine is not increasing further. - Time Time Spent with patient: Less than 15 minutes
[2019-05-01] MEDS: ENOXAPARIN SODIUM INJ 40 MG/0.4 ML DISP.SYRIN SUBCUT SCH ×2 (09:52→09:56)
[2019-05-01] MEDS: PANTOPRAZOLE SODIUM 40 MG VIAL IV SCH ×2 (09:56→21:54)
[2019-05-01] MEDS: FLUCONAZOLE 200 MG/NS RTU 200 MG/100 ML RTUPB IV SCH (09:56)
[2019-05-01] MEDS ORDERED: AZITHROMYCIN 500 MG in DEXTROSE 5%-WATER 250 ML IV SCH (10:00)
[2019-05-01] MEDS ORDERED: AZITHROMYCIN INJ 500 MG VIAL IV ONE (11:59)
--- NOTE | 2019-05-01 12:06 | PDOC PROGRESS REPORT ---
Subjective Progress Note for:: 05/01/19 Subjective:: Patient still complaining of some abdominal pain but much better than before. Denies any shortness of breath fever chills. Still currently n.p.o. Reason For Visit: PERFORATED DUODENAL ULCER Physical Exam Vital Signs: Temp Pulse Resp BP Pulse Ox 98.2 F 99 16 126/76 H 99 05/01/19 08:00 05/01/19 08:00 05/01/19 08:00 05/01/19 08:00 05/01/19 08:00 Intake & Output 04/30/19 05/01/19 05/02/19 06:59 06:59 06:59 Intake Total 4408 3055 1123 Output Total 1195 3690 380 Balance 3213 -015 743 Weight 71.5 kg 69.4 kg General appearance: PRESENT: no acute distress, cooperative Neck exam: ABSENT: JVD Respiratory exam: PRESENT: clear to auscultation molly, unlabored. ABSENT: rhonchi, tachypnea, wheezes Cardiovascular exam: PRESENT: RRR, +S1, +S2. ABSENT: systolic murmur, tachycardia GI/Abdominal exam: PRESENT: distended, hypoactive bowel sounds, soft, tenderness. ABSENT: rigid Neurological exam: PRESENT: alert, awake, oriented to person, oriented to place, oriented to time Results Laboratory Results: 05/01/19 03:51 05/01/19 03:51 05/01/19 05/01/19 03:51 03:51 WBC 10.5 D RBC 4.02 L Hgb 13.4 L Hct 39.2 MCV 98 H MCH 33.4 MCHC 34.3 RDW 13.7 Plt Count 179 Sodium 137.9 Potassium 4.7 Chloride 106 Carbon Dioxide 26 Anion Gap 6 BUN 11 Creatinine 1.04 Est GFR ( Amer) > 60 Glucose 79 Calcium 8.6 Impressions: Abdomen/Pelvis CT 04/29/19 22:00 IMPRESSION: Increasing free intraperitoneal gas and fluid consistent with perforation The exact site of perforation is not clearly identified but a small defect in the wall of the duodenal bulb superiorly and laterally may be present which could reflect area of duodenal ulceration. Perforation in the central small bowel or transverse colon cannot be entirely excluded. A definite area of wall thickening or diverticulitis involving the sigmoid colon or cecum are not identified at the appendix appears normal Findings were discussed with Dr Bhatt at 9:50 PM central time. Assessment and Plan - Diagnosis (1) Chlamydial urethritis in male Is this a current diagnosis for this admission?: Yes Plan: -I have informed patient of this results and that this is a STD. -I have advised patient to refrain from sexual activity with his for the next 1-2 weeks and that is to be important to get his or any other sexual partners tested for chlamydia. -I will go ahead and give a one-time treatment dose of azithromycin 1 g. Order has been placed. (2) ETOH abuse Is this a current diagnosis for this admission?: Yes Plan: Patient has history of alcohol abuse. Currently no evidence of withdrawal has been noted. I will maintain on CIWA protocol every 6 hours with Ativan orders only for elevated CIWA scores. (3) Hypokalemia Is this a current diagnosis for this admission?: Yes Plan: Resolved. (4) Perforated duodenal ulcer Is this a current diagnosis for this admission?: Yes Plan: Status post laparotomy with Get's pouch. The patient has a midline incision and bilateral Bijan-Davison drains. Further management per surgery. - Time Time Spent with patient: 15-24 minutes
[2019-05-01] MEDS ORDERED: LORAZEPAM INJ 2 MG/1 ML VIAL IV PRN ×2 (12:11→12:13)
[2019-05-01] MEDS ORDERED: AZITHROMYCIN 500 MG in DEXTROSE 5%-WATER 250 ML IV ONE (13:00)
[2019-05-01] MEDS: NORMAL SALINE 1000 ML 1,000 ML IV PRN (14:58)
[2019-05-01] MEDS: NORMAL SALINE 1000 ML 1,000 ML with POTASSIUM CHLORIDE 20 MEQ, MAGNESIUM SULFATE 8 MEQ,... IV SCH ×5 (17:50)
[2019-05-01 19:29] LABS: ANION GAP 7 (5-19); BLOOD UREA NITROGEN 9 mg/dL (7-20); CARBON DIOXIDE 28 mmol/L (22-30); CHLORIDE 102 mmol/L (98-107); GLUCOSE 70 mg/dL (75-110); POTASSIUM 3.9 mmol/L (3.6-5.0)
[2019-05-02] MEDS: CEFAZOLIN SODIUM 1 GM in DEXTROSE 5%-WATER 50 ML IV SCH ×4 (03:37→21:19)
[2019-05-02] MEDS: MORPHINE SULFATE 10 MG/ML INJ IV PRN ×5 (03:38→21:24)
[2019-05-02] MEDS: NORMAL SALINE 1000 ML 1,000 ML IV PRN ×2 (03:41→10:15)
[2019-05-02] MEDS: ENOXAPARIN SODIUM INJ 40 MG/0.4 ML DISP.SYRIN SUBCUT SCH (10:10)
[2019-05-02] MEDS: FLUCONAZOLE 200 MG/NS RTU 200 MG/100 ML RTUPB IV SCH (10:10)
[2019-05-02] MEDS: PANTOPRAZOLE SODIUM 40 MG VIAL IV SCH ×2 (10:10→21:23)
--- NOTE | 2019-05-02 13:45 | PDOC PROGRESS REPORT ---
Subjective Progress Note for:: 05/02/19 Subjective:: Patient states that he feels better today. Denies any nausea at the moment. In terms of his chlamydia infection, patient states that he will discuss it with his and ask her to get tested as well. Reason For Visit: PERFORATED DUODENAL ULCER Physical Exam Vital Signs: Temp Pulse Resp BP Pulse Ox 97.4 F 69 18 136/87 H 100 05/02/19 11:26 05/02/19 11:26 05/02/19 11:26 05/02/19 11:26 05/02/19 11:26 Intake & Output 05/01/19 05/02/19 05/03/19 06:59 06:59 06:59 Intake Total 3055 2328 2158 Output Total 3690 2935 60 Balance -635 -607 2098 Weight 69.4 kg 68.7 kg General appearance: PRESENT: no acute distress, cooperative Mouth exam: PRESENT: other - Patient still has NG tube in Respiratory exam: PRESENT: symmetrical, unlabored. ABSENT: chest wall te nderness, tachypnea, wheezes Cardiovascular exam: PRESENT: +S1, +S2 GI/Abdominal exam: PRESENT: distended, normal bowel sounds, soft, tenderness. ABSENT: rigid Neurological exam: PRESENT: alert, awake, oriented to person, oriented to place, oriented to time, oriented to situation Results Laboratory Results: 05/01/19 03:51 05/01/19 18:27 05/01/19 18:27 Sodium 136.5 L Potassium 3.9 Chloride 102 Carbon Dioxide 28 Anion Gap 7 BUN 9 Creatinine 1.02 Est GFR ( Amer) > 60 Glucose 70 L Calcium 9.0 Impressions: Abdomen/Pelvis CT 04/29/19 22:00 IMPRESSION: Increasing free intraperitoneal gas and fluid consistent with perforation The exact site of perforation is not clearly identified but a small defect in the wall of the duodenal bulb superiorly and laterally may be present which could reflect area of duodenal ulceration. Perforation in the central small bowel or transverse colon cannot be entirely excluded. A definite area of wall thickening or diverticulitis involving the sigmoid colon or cecum are not identified at the appendix appears normal Findings were discussed with Dr Bhatt at 9:50 PM central time. Assessment and Plan - Diagnosis (1) Chlamydial urethritis in male Is this a current diagnosis for this admission?: Yes Plan: -I have informed patient of this results and that this is a STD. -I have advised patient to refrain from sexual activity with his for the next 1-2 weeks and that is to be important to get his or any other sexual partners tested for chlamydia. I have also advised patient of the possibility of infection if he has sexual intercourse with his without her getting tested and treated if needed. -Patient has received full treatment for chlamydial urethritis with 1 g of azithromycin. (2) ETOH abuse Is this a current diagnosis for this admission?: Yes Plan: Patient has history of alcohol abuse. Patient has not shown any sign or evidence of withdrawal throughout stay and has not required any Ativan. At this juncture, I will discontinue Ativan orders and simply continue CIWA monitoring. (3) Hypokalemia Is this a current diagnosis for this admission?: Yes Plan: Secondary to GI losses from loss of gastric/intestinal fluid Continue with IV supplementation while patient is n.p.o. and monitor BMP and give a few days of oral supplementation once NG tube is discontinued. (4) Perforated duodenal ulcer Is this a current diagnosis for this admission?: Yes Plan: Status post laparotomy with Get's pouch. The patient has a midline incision and bilateral Bijan-Davison drains. Further management per surgery. - Plan Summary Summary: Patient does not seem to be having alcohol withdrawal. I will sign off. Please call [phone] with questions. - Time Time Spent with patient: Less than 15 minutes
[2019-05-02] MEDS: NORMAL SALINE 1000 ML 1,000 ML with POTASSIUM CHLORIDE 20 MEQ, MAGNESIUM SULFATE 8 MEQ,... IV SCH ×5 (18:28)
--- NOTE | 2019-05-02 19:25 | PDOC PROGRESS REPORT ---
Subjective Progress Note for:: 05/02/19 Reason For Visit: PERFORATED DUODENAL ULCER Physical Exam Vital Signs: Temp Pulse Resp BP Pulse Ox 98.6 F 77 16 124/79 99 05/02/19 15:10 05/02/19 15:10 05/02/19 15:10 05/02/19 15:10 05/02/19 15:10 Intake & Output 05/01/19 05/02/19 05/03/19 06:59 06:59 06:59 Intake Total 3055 2328 2158 Output Total 3690 3735 1780 Balance -635 -1406 378 Weight 69.4 kg 68.7 kg Results Laboratory Results: 05/01/19 03:51 05/01/19 18:27 05/01/19 18:27 Sodium 136.5 L Potassium 3.9 Chloride 102 Carbon Dioxide 28 Anion Gap 7 BUN 9 Creatinine 1.02 Est GFR ( Amer) > 60 Glucose 70 L Calcium 9.0 Impressions: Abdomen/Pelvis CT 04/29/19 22:00 IMPRESSION: Increasing free intraperitoneal gas and fluid consistent with perforation The exact site of perforation is not clearly identified but a small defect in the wall of the duodenal bulb superiorly and laterally may be present which could reflect area of duodenal ulceration. Perforation in the central small bowel or transverse colon cannot be entirely excluded. A definite area of wall thickening or diverticulitis involving the sigmoid colon or cecum are not identified at the appendix appears normal Findings were discussed with Dr Bhatt at 9:50 PM central time. Assessment & Plan - Diagnosis (1) Perforated duodenal ulcer Is this a current diagnosis for this admission?: Yes - Time Time Spent with patient: Less than 15 minutes - Plan Summary Plan Summary: This is a 33-year-old male status post laparotomy and repair of a perforated duodenal ulcer. The patient is doing reasonably well today. Continue with NG tube for now. Plan for upper GI series in the near future. The patient complains of constipation. Will order Dulcolax suppository. Continue with current pain medication regimen. Continue with IV Protonix. Out of bed, ambulate, pulmonary toilet.
[2019-05-02] MEDS ORDERED: BISACODYL 10 MG SUPP.RECT PR ONE (19:30)
[2019-05-02] MEDS: DIPHENHYDRAMINE HCL 50 MG/ML VIAL IV SCH (21:24)
[2019-05-03] MEDS: MORPHINE SULFATE 10 MG/ML INJ IV PRN ×4 (03:06→21:08)
[2019-05-03] MEDS: CEFAZOLIN SODIUM 1 GM in DEXTROSE 5%-WATER 50 ML IV SCH ×4 (03:07→21:08)
[2019-05-03 05:19] LABS: HEMATOCRIT 41.2 % (37.9-51.0); HEMOGLOBIN 13.7 g/dL (13.5-17.0); MEAN CORPUSCULAR HEMOGLOBIN 32.7 pg (27.0-33.4); MEAN CORPUSCULAR HGB CONC 33.3 g/dL (32.0-36.0); MEAN CORPUSCULAR VOLUME 98 fl (80-97); PLATELET COUNT 233 10^3/uL (150-450); RED CELL DISTRIBUTION WIDTH 13.4 % (11.5-14.0); WHITE BLOOD COUNT 13.8 10^3/uL (4.0-10.5)
[2019-05-03 05:33] LABS: ANION GAP 10 (5-19); BLOOD UREA NITROGEN 8 mg/dL (7-20); CALCIUM 9.2 mg/dL (8.4-10.2); CARBON DIOXIDE 27 mmol/L (22-30); CHLORIDE 100 mmol/L (98-107); GLUCOSE 92 mg/dL (75-110); POTASSIUM 4.8 mmol/L (3.6-5.0)
[2019-05-03 05:46] LABS: ABSOLUTE LYMPHOCYTES# (MANUAL) 1.4 10^3/uL (0.5-4.7); BASOPHILS % (MANUAL) 0 % (0-2); EOSINOPHILS % (MANUAL) 0 % (0-6); LYMPHOCYTES % (MANUAL) 10 % (13-45); MONOCYTES % (MANUAL) 7 % (3-13); PLATELET COMMENT ADEQUATE; RBC MORPHOLOGY COMMENT NORMO-CYTIC/CHROMIC; SEGMENTED NEUTROPHILS % (MAN) 83 % (42-78); TOTAL CELLS COUNTED 100
[2019-05-03] MEDS: ENOXAPARIN SODIUM INJ 40 MG/0.4 ML DISP.SYRIN SUBCUT SCH (09:46)
[2019-05-03] MEDS: PANTOPRAZOLE SODIUM 40 MG VIAL IV SCH ×2 (09:46→21:08)
[2019-05-03] MEDS: NORMAL SALINE 1000 ML 1,000 ML IV PRN (09:46)
--- NOTE | 2019-05-03 10:10 | PDOC PROGRESS REPORT ---
Subjective Progress Note for:: 05/03/19 Subjective:: Feels well. No problems. Reason For Visit: PERFORATED DUODENAL ULCER Physical Exam Vital Signs: Temp Pulse Resp BP Pulse Ox 98.5 F 76 16 126/74 H 98 05/03/19 07:34 05/03/19 07:34 05/03/19 07:34 05/03/19 07:34 05/03/19 07:34 Intake & Output 05/02/19 05/03/19 05/04/19 06:59 06:59 06:59 Intake Total 2328 4331 Output Total 3735 2530 Balance -1407 1801 Weight 68.7 kg 69.4 kg General appearance: PRESENT: no acute distress, cooperative Respiratory exam: PRESENT: clear to auscultation molly Cardiovascular exam: PRESENT: RRR GI/Abdominal exam: PRESENT: other - Soft, nondistended, nontender to palpation. Drain output is serosanguineous. Wound clean dry and intact. Results Laboratory Results: 05/03/19 04:18 05/03/19 04:18 05/03/19 05/03/19 04:18 04:18 WBC 13.8 H RBC 4.20 L Hgb 13.7 Hct 41.2 MCV 98 H MCH 32.7 MCHC 33.3 RDW 13.4 Plt Count 233 Seg Neutrophils % Not Reportable Sodium 137.1 Potassium 4.8 Chloride 100 Carbon Dioxide 27 Anion Gap 10 BUN 8 Creatinine 0.80 Est GFR ( Amer) > 60 Glucose 92 Calcium 9.2 Impressions: Abdomen/Pelvis CT 04/29/19 22:00 IMPRESSION: Increasing free intraperitoneal gas and fluid consistent with perforation The exact site of perforation is not clearly identified but a small defect in the wall of the duodenal bulb superiorly and laterally may be present which could reflect area of duodenal ulceration. Perforation in the central small bowel or transverse colon cannot be entirely excluded. A definite area of wall thickening or diverticulitis involving the sigmoid colon or cecum are not identified at the appendix appears normal Findings were discussed with Dr Bhatt at 9:50 PM central time. Assessment & Plan - Diagnosis (1) Perforated abdominal viscus Is this a current diagnosis for this admission?: Yes Plan: Doing well status post Get patch. Will plan upper GI series tomorrow to evaluate closure. - Time Time Spent with patient: Less than 15 minutes
[2019-05-03] MEDS: FLUCONAZOLE 200 MG/NS RTU 200 MG/100 ML RTUPB IV SCH (10:34)
[2019-05-03] MEDS: NORMAL SALINE 1000 ML 1,000 ML with POTASSIUM CHLORIDE 20 MEQ, MAGNESIUM SULFATE 8 MEQ,... IV SCH ×5 (17:52)
[2019-05-03] MEDS: DIPHENHYDRAMINE HCL 50 MG/ML VIAL IV SCH (21:08)
[2019-05-04] MEDS: NORMAL SALINE 1000 ML 1,000 ML IV PRN (00:27)
[2019-05-04] MEDS: CEFAZOLIN SODIUM 1 GM in DEXTROSE 5%-WATER 50 ML IV SCH ×4 (02:02→20:33)
[2019-05-04] MEDS: MORPHINE SULFATE 10 MG/ML INJ IV PRN ×5 (02:06→21:06)
--- NOTE | 2019-05-04 08:52 | PDOC PROGRESS REPORT ---
Subjective Progress Note for:: 05/04/19 Subjective:: feels well passed stool, no pain Reason For Visit: PERFORATED DUODENAL ULCER Physical Exam Vital Signs: Temp Pulse Resp BP Pulse Ox 98.6 F 78 16 121/78 100 05/04/19 00:00 05/04/19 00:00 05/04/19 00:00 05/04/19 00:00 05/04/19 00:00 Intake & Output 05/03/19 05/04/19 05/05/19 06:59 06:59 06:59 Intake Total 4331 2843 Output Total 2530 1575 Balance 1801 1268 Weight 69.4 kg 70.9 kg General appearance: PRESENT: no acute distress Head exam: PRESENT: normocephalic Eye exam: PRESENT: EOMI Ear exam: PRESENT: normal external ear exam Mouth exam: PRESENT: moist Neck exam: PRESENT: full ROM Respiratory exam: PRESENT: clear to auscultation molly Cardiovascular exam: PRESENT: RRR Pulses: PRESENT: normal radial pulses, normal femoral pulses Vascular exam: PRESENT: normal capillary refill GI/Abdominal exam: PRESENT: soft - cassidy's serous Rectal exam: PRESENT: deferred Extremities exam: PRESENT: full ROM Musculoskeletal exam: PRESENT: full ROM Neurological exam: PRESENT: alert, awake, oriented to person, oriented to place Psychiatric exam: PRESENT: appropriate affect Skin exam: PRESENT: dry Results Laboratory Results: 05/03/19 04:18 05/03/19 04:18 Impressions: Abdomen/Pelvis CT 04/29/19 22:00 IMPRESSION: Increasing free intraperitoneal gas and fluid consistent with perforation The exact site of perforation is not clearly identified but a small defect in the wall of the duodenal bulb superiorly and laterally may be present which could reflect area of duodenal ulceration. Perforation in the central small bowel or transverse colon cannot be entirely excluded. A definite area of wall thickening or diverticulitis involving the sigmoid colon or cecum are not identified at the appendix appears normal Findings were discussed with Dr Bhatt at 9:50 PM central time. Assessment & Plan - Time Time Spent with patient: 25-34 minutes - Plan Summary Plan Summary: s/p perfed ulcer doing well now with return of bowel function awaiting ugi to confirm on leak if no leak will dc ng and start clears.
[2019-05-04] MEDS: FLUCONAZOLE 200 MG/NS RTU 200 MG/100 ML RTUPB IV SCH (10:01)
[2019-05-04] MEDS: PANTOPRAZOLE SODIUM 40 MG VIAL IV SCH ×2 (10:02→21:05)
[2019-05-04] MEDS: ENOXAPARIN SODIUM INJ 40 MG/0.4 ML DISP.SYRIN SUBCUT SCH (10:03)
--- NOTE | 2019-05-04 15:41 | RADIOLOGY REPORT (SQ) ---
EXAM DESCRIPTION: UPPER GI/SM BOWEL COMPLETED DATE/TIME: 05/04/2019 1:51 pm REASON FOR STUDY: Follow-up duodenal perforation COMPARISON: None. TECHNIQUE: Under fluoroscopic guidance, water-soluble contrast was instilled through an indwelling N G tube. Fluoroscopic spot images and routine radiographic images acquired and stored on PACS. Following evaluation of esophagus and stomach, additional barium administered with serial delayed abd ominal radiographs until colonic identification. Fluoroscopic images recorded of the terminal ileum. 12 MM BARIUM TABLET GIVEN: No FLUOROSCOPY TIME: 5.3 minutes 22 images saved to PACS. LIMITATIONS: Single contrast technique. FINDINGS: NEUROMUSCULAR COORDINATION OF SWALLOW: Not assessed ESOPHAGEAL MOTILITY: Not assessed 12 MM TABLET TRANSIT TIME: Not assessed ESOPHAGEAL MUCOSA: Not assessed GASTRO-ESOPHAGEAL JUNCTION: No definite hiatal hernia or reflux. STOMACH: Normal without masses or ulcerations. GASTRIC OUTLET: Moderate delay in gastric emptying, probably relating to postop edema. Normal pyloru s. DUODENAL BULB: Normal distention. No spasm or ulceration. No evidence for contrast extravasation DUODENUM: Mucosa normal. No extrinsic masses or malrotation. PROXIMAL SMALL BOWEL: Normal as visualized. JEJUNUM: Normal mucosal pattern. No dilatation, segmentation, strictures or masses. ILEUM: Not assessed NON-GI TRACT STRUCTURES: No significant finding. OTHER: 2 hour delayed KUB shows no evidence for extravasation. IMPRESSION: UNREMARKABLE SINGLE CONTRAST UPPER GI AND PROXIMAL SMALL BOWEL, WITHOUT EVIDENCE FOR CON TRAST EXTRAVASATION. COMMENT: None Quality ID [id number]: Final reports for procedures using fluoroscopy that document radiation exposure hernandez richard, or exposure time and number of fluorographic images (if radiation exposure indices are not avail able) TECHNICAL DOCUMENTATION: JOB ID: [id number] [employer]- All Rights Reserved Reading location - IP/workstation name: [email or web address] [id number]
[2019-05-04] MEDS: NORMAL SALINE 1000 ML 1,000 ML with POTASSIUM CHLORIDE 20 MEQ, MAGNESIUM SULFATE 8 MEQ,... IV SCH ×5 (18:25)
[2019-05-04] MEDS: DIPHENHYDRAMINE HCL 50 MG/ML VIAL IV SCH (21:05)
[2019-05-05] MEDS: NORMAL SALINE 1000 ML 1,000 ML IV PRN (01:59)
[2019-05-05] MEDS: CEFAZOLIN SODIUM 1 GM in DEXTROSE 5%-WATER 50 ML IV SCH ×4 (02:00→20:17)
[2019-05-05] MEDS: MORPHINE SULFATE 10 MG/ML INJ IV PRN ×4 (02:03→21:30)
--- NOTE | 2019-05-05 07:47 | PDOC PROGRESS REPORT ---
Subjective Progress Note for:: 05/05/19 Subjective:: feels well chin clear liquids Reason For Visit: PERFORATED DUODENAL ULCER Physical Exam Vital Signs: Temp Pulse Resp BP Pulse Ox 98.8 F 69 16 130/82 H 96 05/04/19 23:46 05/04/19 23:46 05/04/19 23:46 05/04/19 23:46 05/04/19 23:46 Intake & Output 05/04/19 05/05/19 05/06/19 06:59 06:59 06:59 Intake Total 2843 2563 Output Total 1575 920 Balance 1268 1643 Weight 70.9 kg 70.9 kg General appearance: PRESENT: no acute distress Head exam: PRESENT: normocephalic Eye exam: PRESENT: EOMI Ear exam: PRESENT: normal external ear exam Mouth exam: PRESENT: moist Neck exam: PRESENT: full ROM Respiratory exam: PRESENT: clear to auscultation molly Cardiovascular exam: PRESENT: RRR Pulses: PRESENT: normal radial pulses, normal femoral pulses Vascular exam: PRESENT: normal capillary refill GI/Abdominal exam: PRESENT: soft, other - wound clean,dry Rectal exam: PRESENT: deferred Musculoskeletal exam: PRESENT: ambulatory, full ROM Neurological exam: PRESENT: alert, awake, oriented to person Psychiatric exam: PRESENT: appropriate affect Skin exam: PRESENT: dry Results Laboratory Results: 05/03/19 04:18 05/03/19 04:18 Impressions: Abdomen/Pelvis CT 04/29/19 22:00 IMPRESSION: Increasing free intraperitoneal gas and fluid consistent with perforation The exact site of perforation is not clearly identified but a small defect in the wall of the duodenal bulb superiorly and laterally may be present which could reflect area of duodenal ulceration. Perforation in the central small bowel or transverse colon cannot be entirely excluded. A definite area of wall thickening or diverticulitis involving the sigmoid colon or cecum are not identified at the appendix appears normal Findings were discussed with Dr Bhatt at 9:50 PM central time. Upper GI and Small Bowel X-Ray 05/04/19 08:00 IMPRESSION: UNREMARKABLE SINGLE CONTRAST UPPER GI AND PROXIMAL SMALL BOWEL, WITHOUT EVIDENCE FOR CONTRAST EXTRAVASATION. Assessment & Plan - Time Time Spent with patient: 25-34 minutes - Plan Summary Plan Summary: s/p alondra patch repair of perforated duodenal ulcer ugi yesterday shows no leak pt chin clears yesterday min op via cassidy will advance diet poss home in am hep lock iv.
[2019-05-05] MEDS: FLUCONAZOLE 200 MG/NS RTU 200 MG/100 ML RTUPB IV SCH (09:02)
[2019-05-05] MEDS: PANTOPRAZOLE SODIUM 40 MG VIAL IV SCH ×2 (09:03→21:30)
[2019-05-05] MEDS: ENOXAPARIN SODIUM INJ 40 MG/0.4 ML DISP.SYRIN SUBCUT SCH (09:09)
[2019-05-05] MEDS ORDERED: AZITHROMYCIN 250 MG TABLET PO SCH (10:00)
[2019-05-05] MEDS: DIPHENHYDRAMINE HCL 50 MG/ML VIAL IV SCH (21:30)
[2019-05-06] MEDS: CEFAZOLIN SODIUM 1 GM in DEXTROSE 5%-WATER 50 ML IV SCH ×2 (02:34→08:47)
[2019-05-06] MEDS: MORPHINE SULFATE 10 MG/ML INJ IV PRN (09:45)
[2019-05-06] MEDS: FLUCONAZOLE 200 MG/NS RTU 200 MG/100 ML RTUPB IV SCH (09:54)
[2019-05-06] MEDS: PANTOPRAZOLE SODIUM 40 MG VIAL IV SCH (09:54)
[2019-05-06] MEDS: ENOXAPARIN SODIUM INJ 40 MG/0.4 ML DISP.SYRIN SUBCUT SCH (10:00)
--- NOTE | 2019-05-06 10:21 | PDOC DISCHARGE SUMMARY ---
General - Admit/Disc Date/PCP Admission Date/Primary Care Provider: 04/29/19 22:07 Discharge Date: 05/06/19 - Discharge Diagnosis Final Diagnosis: Perforated duodenal ulcer. - Assessment Summary: This a 33-year-old male with a history of alcohol abuse, presenting with abdominal pain. He was found to have free intraperitoneal air, consistent with perforated peptic ulcer disease. The patient was taken the operating room where perforated ulcer was identified and repaired. The patient was taken to the floor in stable condition. His NG tube remained in place for several days. A Gastrografin upper GI series was performed, demonstrating no leak from the repair. The NG tube was removed, and the patient was started on a diet. The patient tolerated the diet. By 05/06/2019, he was ambulating, tolerating a diet, having bowel movements, taking oral pain medications, and was medically fit for discharge. - Additional Information Resuscitation Status: Full Code Discharge Diet: As Tolerated Discharge Activity: Balance Activity w/Rest, No Lifting Over 10 Pounds, No Lifting/Push/Pulling Home Medications: No Home Medications 04/30/19 Additional Information: Discharge home. Diet as tolerated. Activity: No lifting greater than 10 pounds x 6 weeks. Follow-up with [facility] in 7 to 10 days. [place] 10/325 mg p.o. every 6 hours as needed for pain. Avoid all alcohol, NSAIDs, steroids, soda pop, caffeine, and nicotine. Protonix 40 mg p.o. daily. History of Present Illiness History of Present Illness: CLOVIS LOJA JR is a 33 year old male Physical Exam Vital Signs: Temp Pulse Resp BP Pulse Ox 98.7 F 84 16 130/66 H 99 05/05/19 23:25 05/05/19 23:25 05/05/19 23:25 05/05/19 23:25 05/05/19 23:25 Intake & Output 05/05/19 05/06/19 05/07/19 06:59 06:59 06:59 Intake Total 2563 1020 50 Output Total 920 1237 Balance 1643 -217 50 Weight 70.9 kg 69.1 kg Results Laboratory Results: WBC 13.8 10^3/uL (4.0-10.5) H 05/03/19 04:18 RBC 4.20 10^6/uL (4.35-5.55) L 05/03/19 04:18 Hgb 13.7 g/dL (13.5-17.0) 05/03/19 04:18 Hct 41.2 % (37.9-51.0) 05/03/19 04:18 MCV 98 fl (80-97) H 05/03/19 04:18 MCH 32.7 pg (27.0-33.4) 05/03/19 04:18 MCHC 33.3 g/dL (32.0-36.0) 05/03/19 04:18 RDW 13.4 % (11.5-14.0) 05/03/19 04:18 Plt Count 233 10^3/uL (150-450) 05/03/19 04:18 Lymph % (Auto) Not Reportable 05/03/19 04:18 [place] % (Auto) Not Reportable 05/03/19 04:18 Eos % (Auto) Not Reportable 05/03/19 04:18 Baso % (Auto) Not Reportable 05/03/19 04:18 Absolute Neuts (auto) Not Reportable 05/03/19 04:18 Absolute Lymphs (auto) Not Reportable 05/03/19 04:18 Absolute Monos (auto) Not Reportable 05/03/19 04:18 Absolute Eos (auto) Not Reportable 05/03/19 04:18 Absolute Basos (auto) Not Reportable 05/03/19 04:18 Total Counted 100 05/03/19 04:18 Seg Neutrophils % Not Reportable 05/03/19 04:18 Seg Neuts % (Manual) 83 % (42-78) H 05/03/19 04:18 Lymphocytes % (Manual) 10 % (13-45) L 05/03/19 04:18 Monocytes % (Manual) 7 % (3-13) 05/03/19 04:18 Eosinophils % (Manual) 0 % (0-6) 05/03/19 04:18 Basophils % (Manual) 0 % (0-2) 05/03/19 04:18 Abs Neuts (Manual) 11.5 10^3/uL (1.7-8.2) H 05/03/19 04:18 Abs Lymphs (Manual) 1.4 10^3/uL (0.5-4.7) 05/03/19 04:18 Abs Monocytes (Manual) 1.0 10^3/uL (0.1-1.4) 05/03/19 04:18 Absolute Eos (Manual) 0.0 10^3/uL (0.0-0.6) 05/03/19 04:18 Abs Basophils (Manual) 0.0 10^3/uL (0.0-0.2) 05/03/19 04:18 Platelet Comment ADEQUATE 05/03/19 04:18 RBC Morph Comment NORMO-CYTIC/CHROMIC 05/03/19 04:18 Sodium 137.1 mmol/L (137-145) 05/03/19 04:18 Potassium 4.8 mmol/L (3.6-5.0) 05/03/19 04:18 Chloride 100 mmol/L (98-107) 05/03/19 04:18 Carbon Dioxide 27 mmol/L (22-30) 05/03/19 04:18 Anion Gap 10 (5-19) 05/03/19 04:18 BUN 8 mg/dL (7-20) 05/03/19 04:18 Creatinine 0.80 mg/dL (0.52-1.25) 05/03/19 04:18 Est GFR ( Amer) > 60 (>60) 05/03/19 04:18 Est GFR (MDRD) Non-Af > 60 (>60) 05/03/19 04:18 Glucose 92 mg/dL (75-110) 05/03/19 04:18 Calcium 9.2 mg/dL (8.4-10.2) 05/03/19 04:18 Magnesium 1.8 mg/dL (1.6-2.3) 04/29/19 18:51 Total Bilirubin 0.3 mg/dL (0.2-1.3) 04/29/19 18:51 Direct Bilirubin 0.2 mg/dL (0.0-0.4) 04/29/19 18:51 Neonat Total Bilirubin Not Reportable 04/29/19 18:51 Neonat Direct Bilirubin Not Reportable 04/29/19 18:51 Neonat Indirect Bili Not Reportable 04/29/19 18:51 AST 32 U/L (17-59) 04/29/19 18:51 ALT 15 U/L (<50) 04/29/19 18:51 Alkaline Phosphatase 64 U/L (38-126) 04/29/19 18:51 Total Protein 4.5 g/dL (6.3-8.2) L 04/29/19 18:51 Albumin 2.3 g/dL (3.5-5.0) L 04/29/19 18:51 Lipase 112.0 U/L (23-300) 04/29/19 18:51 Urine Color YELLOW 04/29/19 19:46 Urine Appearance CLEAR 04/29/19 19:46 Urine pH 5.0 (5.0-9.0) 04/29/19 19:46 Ur Specific [place] 1.021 04/29/19 19:46 Urine Protein NEGATIVE mg/dL (NEGATIVE) 04/29/19 19:46 Urine Glucose (UA) NEGATIVE mg/dL (NEGATIVE) 04/29/19 19:46 Urine Ketones TRACE mg/dL (NEGATIVE) H 04/29/19 19:46 Urine Blood NEGATIVE (NEGATIVE) 04/29/19 19:46 Urine Nitrite (Reflex) NEGATIVE (NEGATIVE) 04/29/19 19:46 Urine Bilirubin NEGATIVE (NEGATIVE) 04/29/19 19:46 Urine Urobilinogen NEGATIVE mg/dL (<2.0) 04/29/19 19:46 Leukocyte Esterase Rfl NEGATIVE (NEGATIVE) 04/29/19 19:46 Urine RBC (Auto) 1 /HPF 04/29/19 19:46 Urine WBC (Reflex) 2 /HPF 04/29/19 19:46 Urine Mucus (Auto) RARE /LPF 04/29/19 19:46 Urine Ascorbic Acid NEGATIVE (NEGATIVE) 04/29/19 19:46 Chlamydia DNA (PCR) DETECTED (NOT DETECT) H 04/29/19 20:08 N.gonorrhoeae DNA (PCR) NOT DETECTED (NOT DETECT) 04/29/19 20:08 Impressions: Abdomen/Pelvis CT 04/29/19 19:46 IMPRESSION: Free intraperitoneal air consistent with perforation. The site of perforation is not identified. Apple Leigh Ann was called and notified of the findings at 8:24 PM central time. There is free fluid in the abdomen and pelvis Wall thickening in loops of large and small bowel which may be as result of inflammation in the peritoneum as a result of the perforation versus enterocolitis from other infectious or inflammatory process Abdomen/Pelvis CT 04/29/19 22:00 IMPRESSION: Increasing free intraperitoneal gas and fluid consistent with perforation The exact site of perforation is not clearly identified but a small defect in the wall of the duodenal bulb superiorly and laterally may be present which could reflect area of duodenal ulceration. Perforation in the central small bowel or transverse colon cannot be entirely excluded. A definite area of wall thickening or diverticulitis involving the sigmoid colon or cecum are not identified at the appendix appears normal Findings were discussed with Dr Bhatt at 9:50 PM central time. Upper GI and Small Bowel X-Ray 05/04/19 08:00 IMPRESSION: UNREMARKABLE SINGLE CONTRAST UPPER GI AND PROXIMAL SMALL BOWEL, WITHOUT EVIDENCE FOR CONTRAST EXTRAVASATION.
[2019-05-06 12:38] VITALS: BP 121/78
== END 2019-05-06 12:56 | disposition home or self-care (01) | DRG 329 ==
LOC: ER 18:46 → EH 22:07 → 5 04-30 02:33
PROVIDERS: ATTEND Nurse Practitioner
PROC: 0DU907Z Supplement Duodenum with Autologous Tissue Substitute, Open Approach (ICD-10-PCS; principal; 2019-04-30)
PROC: BD15ZZZ Fluoroscopy of Upper GI (ICD-10-PCS; 2019-05-04)
DX: K26.5 Chronic or unspecified duodenal ulcer with perforation (principal); K65.9 Peritonitis, unspecified; E83.51 Hypocalcemia; K76.0 Fatty (change of) liver, not elsewhere classified; F10.20 Alcohol dependence, uncomplicated; F17.200 Nicotine dependence, unspecified, uncomplicated; F14.90 Cocaine use, unspecified, uncomplicated; F12.90 Cannabis use, unspecified, uncomplicated; A56.01 Chlamydial cystitis and urethritis; R05 Cough; Z57.4 Occupational exposure to toxic agents in agriculture
CPT/HCPCS: 36415; 74176; 74177; 74249; 790; 80048; 80053; 81001; 83690; 83735; 84132; 85025; 85027; 87491; 87591; 90686; 96365; 96375; 99285; C9113; J0456; J0610; J0690; J1100; J1170; J1200; J1450; J1650; J1885; J2250; J2270; J2405; J2704; J2710; J3010; J3411; J3475; J3480; J3490; J7030; J7060; S0028

== ENCOUNTER 2020-04-22 19:24 | Emergency (ER) | payer OTHER ==
--- NOTE | 2020-04-22 20:15 | ER Document Report ---
ED Medical Screen (RME) - General Chief Complaint: Constipation Stated Complaint: CONSTIPATION POST SURGERY Time Seen by Provider: 04/22/20 20:07 Mode of Arrival: Ambulatory Information source: Patient Notes: Patient is a 34-year-old male comes emergency room with a 2-day onset of constipation. Patient states that he had ulcer surgery approximately 1 year ago in his belly and he kind of feels similar to that at this time. He denies taking any narcotic medications but states he just all of a sudden has not been out of a bowel movement 2 days. He went to a friend's house today where they gave him some Gas-X and a stool softener recently had some watery stuff come out a little bit. Patient denies any nausea or vomiting with this. Denies any fevers. Patient denies any other medical problems. He does admit to daily drinking of alcohol approximately 24 ounce cans of beer. And he does smoke occasionally. His examination: Patient is a thin appearing 34-year-old male no apparent distress on examination tonight. Cardiac: Patient has a regular rate and rhythm at 83 bpm on monitor. Blood pressure is 133/97 with a saturation of 100% on room air. Lungs: Bilateral breath sounds breath sounds increased with auscultation. Abdomen: Bowel sounds are decreased significantly at all quadrants in the sitting position. Patient has just some mild diffuse tenderness to palpation in the upper quads in the sitting position. I have greeted and performed a rapid initial assessment of this patient. A comprehensive ED assessment and evaluation of the patient, analysis of test results and completion of the medical decision making process will be conducted by additional ED providers. Dictation of this chart was performed using voice recognition software; therefore, there may be some unintended grammatical errors. TRAVEL OUTSIDE OF THE [place] IN LAST 30 DAYS: No - Related Data Allergies/Adverse Reactions: No Known Allergies Allergy (Verified 04/22/20 20:02) Past Medical History - Social History Frequency of alcohol use: Heavy Drug Abuse: Cocaine, Marijuana, Methamphetamine Renal/ Medical History: Denies: Hx Peritoneal Dialysis GI Medical History: Reports: Hx Ulcer Past Surgical History: Reports: Hx Abdominal Surgery - Immunizations Immunizations up to date: Yes Hx Diphtheria, Pertussis, Tetanus Vaccination: Yes Physical Exam - Vital signs Vitals: Temp Pulse Resp BP Pulse Ox 98.4 F 83 16 133/97 H 100 04/22/20 19:41 04/22/20 19:41 04/22/20 19:41 04/22/20 19:41 04/22/20 19:41 Course - Vital Signs Vital signs: Temp Pulse Resp BP Pulse Ox 98.4 F 83 16 133/97 H 100 04/22/20 19:41 04/22/20 19:41 04/22/20 19:41 04/22/20 19:41 04/22/20 19:41
[2020-04-22 22:02] LABS: ABSOLUTE MONOCYTES (AUTO) 0.6 10^3/uL (0.1-1.4); ABSOLUTE NEUT (AUTO) 3.2 10^3/uL (1.7-8.2); BASOPHILS % (AUTO) 0.5 % (0-2); EOSINOPHILS % (AUTO) 0.7 % (0-6); HEMATOCRIT 40.7 % (37.9-51.0); HEMOGLOBIN 13.8 g/dL (13.5-17.0); LYMPHOCYTES % (AUTO) 20.2 % (13-45); MEAN CORPUSCULAR HEMOGLOBIN 32.9 pg (27.0-33.4); MEAN CORPUSCULAR VOLUME 97 fl (80-97); MONOCYTES % (AUTO) 12.5 % (3-13); PLATELET COUNT 232 10^3/uL (150-450); SEGMENTED NEUTROPHILS % (AUTO) 66.1 % (42-78); TOTAL CELLS COUNTED % (AUTO) 100 %; WHITE BLOOD COUNT 4.8 10^3/uL (4.0-10.5)
--- NOTE | 2020-04-22 22:08 | RADIOLOGY REPORT (SQ) ---
EXAM DESCRIPTION: X-RAY CHEST- ONE VIEW AND ABDOMEN/ PELVIS -[3] VIEWS CLINICAL HISTORY: Constipation COMPARISON: CT April 29, 2019 TECHNIQUE: One view of the chest and two views of the abdomen and pelvis. FINDINGS: There are no discrete air space infiltrates, pneumothoraces or pleural effusions. The pulmonary vascularity is normal. The cardiomediastinal contour is unremarkable for patient's age and sex. There is no evidence of free air under the hemidiaphragms. There is a nonspecific bowel gas pattern with moderate colonic stool burden. Appearance of buttons overlying the right upper abdominal quadrant is only seen on a single view and presumed to overlie the patient. No suspicious lytic or blastic osseous lesions are identified. IMPRESSION: Nonspecific bowel gas pattern with moderate colonic stool burden.
[2020-04-22 22:11] LABS: APPEARANCE,URINE CLEAR; BILIRUBIN,URINE NEGATIVE (NEGATIVE); COLOR,URINE YELLOW; GLUCOSE, URINE NEGATIVE (NEGATIVE); KETONES,URINE NEGATIVE (NEGATIVE); LEUKOCYTE ESTERASE,URINE NEGATIVE (NEGATIVE); NITRITE,URINE NEGATIVE (NEGATIVE); PROTEIN,URINE NEGATIVE (NEGATIVE); URINE SPECIFIC GRAVITY 1.008; UROBILINOGEN,URINE NEGATIVE mg/dL (<2.0)
[2020-04-22 22:19] LABS: ALBUMIN 4.8 g/dL (3.5-5.0); ALCOHOL 17 mg/dL (NONE DETECTED); ALKALINE PHOSPHATASE 121 U/L (38-126); ANION GAP 9 (5-19); ASPARTATE AMINO TRANSFERASE 49 U/L (17-59); BILIRUBIN,DIRECT 0.1 mg/dL (0.0-0.4); BILIRUBIN,TOTAL 0.5 mg/dL (0.2-1.3); BLOOD UREA NITROGEN 9 mg/dL (7-20); CALCIUM 10.7 mg/dL (8.4-10.2); CARBON DIOXIDE 28 mmol/L (22-30); CHLORIDE 101 mmol/L (98-107); GLUCOSE 90 mg/dL (75-110); TOTAL PROTEIN 7.9 g/dL (6.3-8.2)
[2020-04-22 22:34] LABS: URINE AMPHETAMINES SCREEN NEGATIVE; URINE BARBITURATES SCREEN NEGATIVE; URINE BENZODIAZEPINES SCREEN NEGATIVE; URINE METHADONE SCREEN NEGATIVE; URINE PHENCYCLIDINE SCREEN NEGATIVE
[2020-04-22 22:36] LABS: URINE COCAINE SCREEN UNCONFIRMED POSITIVE; URINE MARIJUANA (THC) SCREEN UNCONFIRMED POSITIVE
[2020-04-23] MEDS ORDERED: MAGNESIUM CITRATE 296 ML BOTTLE PO ONE (01:10)
--- NOTE | 2020-04-23 01:10 | ER Document Report ---
ED General - General Chief Complaint: Constipation Stated Complaint: CONSTIPATION POST SURGERY Time Seen by Provider: 04/22/20 20:07 Mode of Arrival: Ambulatory TRAVEL OUTSIDE OF THE [place] IN LAST 30 DAYS: No - HPI Notes: Patient is a 34-year-old male with a history of significant alcoholic gastritis and perhaps perforated gastric ulcer who presents to the emergency department f or evaluation of abdominal pain and constipation. He had had emergency surgery in the past. He states he has not had a bowel movement in the last 2 days. He is had some upper abdominal pain. He tried a stool softener had little in the way of relief. He also tried some Gas-X. He denies any fevers or chills. No nausea or vomiting. His last bowel movement was 2 days ago, he denies any melena or hematochezia. He is still urinating normally. On further questioning, the patient admits that his diet has changed significantly as of late. He has been working outside during the day, been very busy. He states that he has been eating a significant amount of fast food, much less in the way of vegetables and roughage as compared to previously. - Related Data Allergies/Adverse Reactions: No Known Allergies Allergy (Verified 04/22/20 20:02) Past Medical History - General Information source: Patient - Social History Smoking Status: Current Every Day Smoker Frequency of alcohol use: Heavy Drug Abuse: Cocaine, Marijuana, Methamphetamine Family History: Reviewed & Not Pertinent, Malignancy Renal/ Medical History: Denies: Hx Peritoneal Dialysis GI Medical History: Reports: Hx Gastritis, Hx Ulcer Past Surgical History: Reports: Hx Abdominal Surgery - Immunizations Immunizations up to date: Yes Hx Diphtheria, Pertussis, Tetanus Vaccination: Yes Review of Systems - Review of Systems Constitutional: No symptoms reported EENT: No symptoms reported Cardiovascular: No symptoms reported Respiratory: No symptoms reported Gastrointestinal: See HPI Genitourinary: No symptoms reported Musculoskeletal: No symptoms reported Skin: No symptoms reported Neurological/Psychological: No symptoms reported Physical Exam - Vital signs Vitals: Temp Pulse Resp BP Pulse Ox 98.4 F 83 16 133/97 H 100 04/22/20 19:41 04/22/20 19:41 04/22/20 19:41 04/22/20 19:41 04/22/20 19:41 - Notes Notes: Vital signs reviewed, please refer to chart. Head is normocephalic, atraumatic. Pupils equal round, reactive to light. Neck is supple without meningismus. Heart is regular rate and rhythm. Lungs are clear to auscultation bilaterally. Abdomen is soft, mildly tender in the epigastrium without rebound or guarding, normoactive bowel sounds throughout. Extremities without cyanosis, clubbing. Posterior calves are nontender. Peripheral pulses are equal. Skin is warm and dry. Patient is awake, alert, neurological exam is nonfocal. Course - Re-evaluation Re-evalutation: 04/23/20 01:08 Patient presents to the emergency department for evaluation. Laboratory investigations are ordered. Unfortunately a lipase was not added, I did add this to his lab work and it is pending at this time. Assuming it is negative, we will treat the patient for constipation. We also talked at length about him continuing to put himself at risk for significant alcohol gastritis and bleeding secondary to his continued drinking. I strongly encouraged him to quit, he voiced understanding. Otherwise he is not on a PPI. I will prescribe him Protonix. I told him if he cannot afford this medication that he should discuss this with the pharmacist and seek out at an affordable [id number] alternative. He voiced understanding. Assuming his lipase is normal, the patient will be sent home with magnesium citrate. He is to return to the ED with worsening. - Vital Signs Vital signs: Temp Pulse Resp BP Pulse Ox 98.1 F 73 16 131/79 H 100 04/23/20 01:43 04/23/20 01:43 04/23/20 01:43 04/23/20 01:43 04/23/20 01:43 - Laboratory Result Diagrams: 04/22/20 21:51 04/22/20 21:51 Laboratory results interpreted by me: 04/22/20 04/22/20 04/22/20 21:51 21:51 21:51 RBC 4.20 L Calcium 10.7 H Urine Blood SMALL H - Diagnostic Test Radiology reviewed: Reports reviewed Radiology results interpreted by me: 04/23/20 01:09 Acute Abdomen Series 04/22/20 20:14 IMPRESSION: Nonspecific bowel gas pattern with moderate colonic stool burden. Discharge - Discharge Clinical Impression: Epigastric abdominal pain, Constipation Condition: Stable Disposition: HOME, SELF-CARE Instructions: Abdominal Pain ([facility]), Constipation ([facility]) Additional Instructions: Please quit drinking. Take Protonix as directed. Drink all of the magnesium citrate at home as directed, watch for cramping, but this will help you with her constipation. Try to increase your fiber and water intake. Follow-up with primary care next week. If you develop worsening or new concerning symptoms of any sort, please return immediately to the emergency department for evaluation. Prescriptions: Pantoprazole Sodium [Protonix] 40 mg PO DAILY #30 tablet.
[2020-04-23 01:44] VITALS: BP 131/79
== END 2020-04-23 01:45 | disposition home or self-care (01) ==
LOC: ER 19:24
DX: K59.00 Constipation, unspecified (principal); R10.13 Epigastric pain; F17.200 Nicotine dependence, unspecified, uncomplicated
CPT/HCPCS: 99284; 36415; 87086; 80307 ×2; 83690; 85025; 80053; 81001; 74022; J3490

== ENCOUNTER 2020-05-29 08:50 | Emergency (ER) | payer OTHER ==
[2020-05-29 11:22] VITALS: BP 128/79
--- NOTE | 2020-05-29 11:24 | ER Document Report ---
HPI - HPI Patient complains to provider of: Skin infection Time Seen by Provider: 05/29/20 11:14 Onset: Last week Onset/Duration: Worse Pain Level: 2 Context: Patient presents complaining of a sore with drainage inside his left nostril and drainage from the left ear. Patient states symptoms have been for the past week. Patient denies any fever. Patient denies any previous injury to the ear or any previous history of perforated tympanic membrane. Patient denies any fever. Associated Symptoms: Earache. denies: Fever, Nausea, Vomiting Exacerbated by: Denies Relieved by: Denies Similar symptoms previously: No Recently seen / treated by doctor: No - ROS ROS below otherwise negative: Yes Systems Reviewed and Negative: Yes All other systems reviewed and negative - CONSTITUTIONAL Constitutional: DENIES: Fever, Chills - EENT EENT: REPORTS: Ear Pain Notes: Wound inside nose - NEURO Neurology: REPORTS: Headache - RESPIRATORY Respiratory: DENIES: Coughing - GASTROINTESTINAL Gastrointestinal: DENIES: Nausea, Patient vomiting - DERM Skin Color: Erythema Skin Problems: Ulcer Past Medical History - General Information source: Patient - Social History Smoking Status: Current Every Day Smoker Frequency of alcohol use: Social Drug Abuse: Marijuana Lives with: Family Family History: Reviewed & Not Pertinent, Malignancy Renal/ Medical History: Denies: Hx Peritoneal Dialysis GI Medical History: Reports: Hx Gastritis, Hx Ulcer Past Surgical History: Reports: Hx Abdominal Surgery - Immunizations Immunizations up to date: Yes Hx Diphtheria, Pertussis, Tetanus Vaccination: Yes Vertical Provider Document - CONSTITUTIONAL Agree With Documented VS: Yes Exam Limitations: No Limitations General Appearance: WD/WN, No Apparent Distress - INFECTION CONTROL TRAVEL OUTSIDE OF THE [place] IN LAST 30 DAYS: No - HEENT HEENT: Atraumatic, Normocephalic. negative: Pharyngeal Exudate, Pharyngeal Tenderness, Pharyngeal Erythema, Tympanic Membrane Red, Tympanic Membrane Bulging Notes: Patient with honey colored crust inside left nostril and to the helix of the left ear. Patient with debris and exudate noted to left external auditory canal. Patient with tenderness with movement of left helix. No mastoid tenderness or swelling - NECK Neck: Normal Inspection, Supple. negative: Lymphadenopathy-Left, Lymphadenopath y-Right - RESPIRATORY Respiratory: Breath Sounds Normal, No Respiratory Distress - CARDIOVASCULAR Cardiovascular: Regular Rate, Regular Rhythm - BACK Back: Normal Inspection - MUSCULOSKELETAL/EXTREMETIES Musculoskeletal/Extremeties: MAEW - NEURO Level of Consciousness: Awake, Alert, Appropriate Motor/Sensory: No Motor Deficit - DERM Integumentary: Warm Notes: suni colored crust to the pinna of left ear, honey colored crust to the inside of left nostril Course - Re-evaluation Re-evalutation: 05/29/20 11:25 Patient with different colored exudate to the left external auditory canal with an additional open wounds and honey colored crusting to the pinna of the left ear worrisome for impetigo in addition to an otitis externa. Patient also with wound inside nostril worrisome for impetigo. Antibiotics will be initiated to treat skin infection with topical eardrop prescription written for the otitis externa. - Vital Signs Vital signs: Temp Pulse Resp BP Pulse Ox 98.7 F 107 H 16 131/87 H 98 05/29/20 08:58 05/29/20 08:58 05/29/20 08:58 05/29/20 08:58 05/29/20 08:58 - Laboratory Results Critical Laboratory Results Reviewed: No Critical Results - Radiology Results Critical Radiology Results Reviewed: No Critical Results Discharge - Discharge Clinical Impression: Impetigo, Infected lesion in nose Otitis externa Qualifiers: Otitis externa type: unspecified type Chronicity: acute Laterality: left Qualified Code(s): H60.502 - Unspecified acute noninfective otitis externa, left ear Condition: Stable Disposition: HOME, SELF-CARE Instructions: Bactroban Ointment ([facility]), Cephalexin ([facility]), Use of Ear Drops ([facility]), Impetigo ([facility]), Otitis Externa ([facility]) Additional Instructions: Return immediately for any new or worsening symptoms: Fever, swelling, lack of improvement or any concerning new symptoms Followup with your primary care provider, call tomorrow to make a followup appointment Prescriptions: Mupirocin [Bactroban 2% Ointment 22 gm] 1 applic TP TID #22 gm Neomy Sulf/Polymyx B Sulf/Hc [Cortisporin Otic Susp] 4 drop LFT_EAR QID #1 bottle Cephalexin Monohydrate [Keflex 500 mg Capsule] 500 mg PO Q6H 5 Days #20 capsule Forms: Return to Work Referrals: [facility] [Provider Group] - Follow up as needed
== END 2020-05-29 11:41 | disposition home or self-care (01) ==
LOC: ER 08:50
DX: L01.00 Impetigo, unspecified (principal); H60.502 Unspecified acute noninfective otitis externa, left ear; R51.9 Headache, unspecified; F17.200 Nicotine dependence, unspecified, uncomplicated; F12.10 Cannabis abuse, uncomplicated
CPT/HCPCS: 99283